=== PATIENT | female | born 1995 | race American Indian/Alaskan Native ===

== ENCOUNTER 2017-07-28 10:46 | Inpatient (IN) | payer MEDICAID ==
[2017-07-28] MEDS ORDERED: Ondansetron 4 MG/2 ML SDV IVPUSH PRN ×2 (11:09→11:51)
[2017-07-28] MEDS ORDERED: Nalbuphine 20 MG/1 ML Amp IVPUSH PRN (11:09)
[2017-07-28] MEDS ORDERED: Sodium Chloride 0.9% 10 ML Syringe FLUSH PRN (11:09)
[2017-07-28] MEDS ORDERED: Lidocaine 1% 50 ML MDV INJECT ONE (11:09)
[2017-07-28] MEDS: Lactated Ringers 1,000 ML IV SCH ×3 (11:30→18:55)
[2017-07-28] MEDS ORDERED: Oxytocin/Lactated Ringers 10 UNIT/1,000 ML BAG IV ONE (11:35)
[2017-07-28] MEDS ORDERED: Oxytocin/Lactated Ringers 10 UNIT/1,000 ML BAG IV SCH ×2 (11:45→17:00)
--- NOTE | 2017-07-28 11:50 | PCM.LDHP ---
L&D History of Present Illness - General Date of Service: 07/28/17 Admit Problem/Dx: Patient Status Order with Admit Dx/Problem 07/28/17 11:10 Patient Status [ADT] Routine Admission Diagnosis/Problem Admission Diagnosis/Problem 07/28/17 11:30 Active Labor Source of Information: Patient, EMS, EMS Notes Reviewed History Limitations: Reports: No Limitations - History of Present Illness Introduction:: Jamison Sultana is a 21yo at 40/2 who presents in active labor. She desires a after a C section on 09/15/14 for transverse presentation. She has had a successful on 01/16/16 without complication. She is GBS negative, has no h/o MRSA, or travel to Zika endemic areas. She has no known drug allergies. She has had her Influenza shot, Tdap shot, and is Varicella immune. She has had late care with no regular interval appointments. She has recently moved back to [facility] and is a transfer of care. US on 07/23/17 showed no abnormalities, FHR 158, and a posterior placenta. Gonorrhea was positive. She was given Cephtriaxone IM on 07/25/17. She was also started on Azithromycin 500mg x2 one time PO 07/24/17. She denies prior history of STI. She is negative for Chlamydia, non reactive RPR, HIV negative, and has a non-immune rubella titer. She is O+ blood type. Last labs show plt 394,000, hct 30.4%, and antibody screen negative. 1 hour glucose was within normal limits at 82mg/dl on 04/26/17. She denies any other complaints at this time, and she does desire an epidural. - Related Data Allergies/Adverse Reactions: Allergies Allergy/AdvReac Type Severity Reaction Status Date / Time No Known Allergies Allergy Verified 07/28/17 11:25 Past Medical History Other HEENT History: Seasonal Allergies Respiratory History: Reports: Asthma : 4 Para: 3 Other OB/BYN History: Prior 09/15/14 Musculoskeletal History: Reports: Back Pain, Chronic Hematologic History: Reports: Blood Transfusion(s) Social & Family History - Family History Other Family History: DM maternal grandmother and mother. HTN mother. Father Seizures. Denies family history of cancer, heart disease, bleeding disorders, anesthesia reaction, autoimmune disorder, and stroke. - Tobacco Use Tobacco Use Within Last Twelve Months: No - Alcohol Use Alcohol Use History: No Alcohol Use in Last Twelve Months: No Alcohol Use Comment: Father alcoholic. Significant other uses alcohol. - Recreational Drug Use Recreational Drug Use: No Drug Use in Last 12 Months: No - Sexual History Sexual History: Reports: Sexually Active H&P Review of Systems - Review of Systems: Review Of Systems: See Below General: Reports: No Symptoms HEENT: Reports: No Symptoms Pulmonary: Reports: No Symptoms Cardiovascular: Reports: No Symptoms Gastrointestinal: Reports: No Symptoms Genitourinary: Reports: No Symptoms Musculoskeletal: Reports: No Symptoms Skin: Reports: No Symptoms Psychiatric: Reports: No Symptoms Neurological: Reports: No Symptoms Hematologic/Lymphatic: Reports: No Symptoms Immunologic: Reports: No Symptoms L&D Exam - Exam Exam: See Below - Vital Signs Weight: 74.888 kg - OB Specific Fundal Height In cm: 40 Contraction Duration (sec): 45 Contraction Frequency (min): 2-3min Contraction Intensity: Moderate Movement: Active Heart Tones: Present - Dunlap Score Dunlap Score Consistency: Soft Dunlap Score Dilation: > 5 cm - Exam General: Alert, Oriented HEENT: PERRLA, Conjunctiva Clear, EACs Clear, EOMI, Hearing Intact, Mucosa Moist & Coleman, Nares Patent, Normal Nasal Septum, Posterior Pharynx Clear, TMs Clear Neck: Supple, Trachea Midline Lungs: Clear to Auscultation, Normal Respiratory Effort Cardiovascular: Regular Rate, Regular Rhythm GI/Abdominal Exam: Normal Bowel Sounds, Soft, Non-Tender Genitourinary: Normal external exam Back Exam: Normal Inspection, Full Range of Motion Extremities: Normal Inspection, Normal Range of Motion, Non-Tender, No Pedal Edema, Normal Capillary Refill Skin: Warm, Dry, Intact Neurological: Cranial Nerves Intact, Reflexes Equal Bilateral Psychiatric: Alert, Normal Affect, Normal Mood - Patient Data Result Diagrams: 07/28/17 11:28 - Problem List (1) Normal labor SNOMED Code(s): 92603836 ICD Code: O80 - ENCOUNTER FOR FULL-TERM UNCOMPLICATED DELIVERY; Z37.9 - OUTCOME OF DELIVERY, UNSPECIFIED Status: Acute Current Visit: Yes (2) Gonorrhea complicating SNOMED Code(s): 303406093 ICD Code: O98.219 - GONORRHEA COMPLICATING , UNSPECIFIED TRIMESTER Status: Acute Current Visit: Yes (3) Late care SNOMED Code(s): 387934428 ICD Code: O09.30 - SUPRVSN OF PREG W INSUFFICIENT ANTENAT CARE, UNSP TRIMESTER Status: Acute Current Visit: Yes (4) Hx successful (vaginal after ), currently SNOMED Code(s): 209576154, 362247745 ICD Code: O34.219 - MATERNAL CARE FOR UNSP TYPE SCAR FROM PREVIOUS DEL Status: Acute Current Visit: Yes (5) Desires (vaginal after ) trial SNOMED Code(s): 980815726 ICD Code: O34.219 - MATERNAL CARE FOR UNSP TYPE SCAR FROM PREVIOUS DEL Status: Acute Current Visit: Yes Problem List Initiated/Reviewed/Updated: Yes Orders Last 24hrs: Active Orders 24 hr Category Date Time Status Patient Status [ADT] Routine ADT 07/28/17 11:10 Active Activity as Tolerated [RC] PFP Care 07/28/17 11:10 Active Communication Order [RC] ASDIRECTED Care 07/28/17 11:09 Active Communication Order [RC] ASDIRECTED Care 07/28/17 11:10 Active Heart Tones [RC] ASDIRECTED Care 07/28/17 11:12 Active Notify Provider [RC] PFP Care 07/28/17 11:10 Active Notify Provider [RC] PRN Care 07/28/17 11:10 Active Peripheral IV Care [RC] . DIRECTED Care 07/28/17 11:12 Active Pump Management, Intrathecal [RC] ASDIRECTED Care 07/28/17 11:12 Active Verify Patient Consent Obtain [RC] ASDIRECTED Care 07/28/17 11:09 Active Vital Signs [RC] PER UNIT ROUTINE Care 07/28/17 11:10 Active Clear Liquid Diet [DIET] Diet 07/28/17 Lunch Active CBC WITH AUTO DIFF [HEME] Stat Lab 07/28/17 11:09 Ordered TYPE AND SCREEN [BBK] Stat Lab 07/28/17 11:09 Ordered Lactated Ringers [Ringers, Lactated] 1,000 ml Med 07/28/17 11:15 Active IV ASDIRECTED Nalbuphine [Nubain] Med 07/28/17 11:09 Active 10 mg IVPUSH Q2H PRN Ondansetron [Zofran] Med 07/28/17 11:09 Active 4 mg IVPUSH Q4H PRN Sodium Chloride 0.9% [Saline Flush] Med 07/28/17 11:09 Active 10 ml FLUSH ASDIRECTED PRN Electronic Heart Tones Ext w TOCO [WOMSER] Oth 07/28/17 11:10 Ordered Routine Electronic Heart Tones Internal [WOMSER] Per Unit Oth 07/28/17 11:10 Ordered Routine Peripheral IV Insertion Adult [OM.PC] Routine Oth 07/28/17 11:10 Ordered Resuscitation Status Routine Resus Stat 07/28/17 11:09 Ordered Medication Orders Lactated Ringer's (Ringers, Lactated) 1,000 mls @ 100 mls/hr IV ASDIRECTED LAURE Nalbuphine HCl (Nubain) 10 mg IVPUSH Q2H PRN PRN Reason: Pain (moderate 4-6) Ondansetron HCl (Zofran) 4 mg IVPUSH Q4H PRN PRN Reason: Nausea/Vomiting Sodium Chloride (Saline Flush) 10 ml FLUSH ASDIRECTED PRN PRN Reason: Keep Vein Open Assessment/Plan Comment:: 1. History of C section after successsful 2. 40/2 2 weeks gestation 3. GC positive treated with Rocephin 07/25/17 4. GBS negative 5. h/o blood transfusion 6. Rubella non-immune 7. Late care 8. Desires epidural Plan: TOLAC for - consent for and c section continuous monitoring- EFM Notify/alert anesthesia, surgery, and pediatric departments (GC hx) MMR post-
[2017-07-28] MEDS ORDERED: diphenhydrAMINE 50 MG/ML SDV IVPUSH PRN (11:51)
[2017-07-28] MEDS ORDERED: ePHEDrine 50 MG/ML SDV IVPUSH PRN (11:51)
[2017-07-28] MEDS ORDERED: fentaNYL 100 MCG/2 ML SDV EPIDUR PRN (11:51)
[2017-07-28] MEDS ORDERED: Bupivacaine/fentaNYL/NS 100 ML Bag EPIDUR SCH (12:00)
--- NOTE | 2017-07-28 14:58 | PCM.SN ---
- Free Text/Narrative Note: Jamison is a 21-year-old 4 now para 4004 recommending female is admitted on the a.m. of 07/28/2017 in active labor. JOHNNY was 07/26/2017. Upon admission she was noted to be dilated 6 cm, 90% effaced, bulging bag of carter. Patient had a recent history of GC positive evaluation in clinic, had received Rocephin IM and Zithromax per recommended protocol. Artificial rupture membranes was undertaken to facilitate labor pattern. Very light meconium- stained amniotic fluid was noted. Pediatrics was informed of the history and was in attendance at the time of delivery.. She progressed relatively rapidly to complete cervical dilation by approximately 1425 hrs. she then delivered a viable, single, female infant with Apgars of 8 and 9, a weight of 4040 g (8 pounds 14.5 ounces), a length of 20.5 inches in a left occiput anterior position at 1433 hrs. Perineum remained intact therefore no suturing was needed. Patient was noted to have significant vulvar varicosities bilaterally. The cord was clamped 2 and baby was handed to Dr. Dyson, attending rn lactation because of very light meconium stained amniotic fluid. Cord blood was obtained. Pitocin IV was started per protocol to facilitate increase in uterine tone and decrease likelihood of bleeding. Placenta delivered at 1439 hrs. and delivered in a Amos fashion, appeared intact and complete and was discarded per patient request. Estimated blood loss was 200 mL. Patient plans to breast-feed. Condition: Good
[2017-07-28] MEDS ORDERED: Lanolin 100% Cream 7 GM Tube TOP PRN (15:52)
[2017-07-28] MEDS ORDERED: Acetaminophen 325 MG Tab PO PRN (15:52)
[2017-07-28] MEDS ORDERED: Docusate Sodium 100 MG Cap PO PRN (15:52)
[2017-07-28] MEDS ORDERED: Measles, Mumps & Rubella Vaccine 0.5 ML SDV SUBCUT ONE (15:52)
[2017-07-28] MEDS ORDERED: Benzocaine/Menthol 20%-0.5% Spray 56 GM Canister TOP PRN (15:52)
[2017-07-28] MEDS ORDERED: Witch Hazel Medicated Pads 100/Jar TOP PRN (15:52)
[2017-07-28] MEDS ORDERED: Misoprostol 200 MCG Tab PO ONE (16:58)
[2017-07-28] MEDS ORDERED: Misoprostol 100 MCG Tab ONE (17:00)
[2017-07-28] MEDS: Ibuprofen 600 MG Tab PO PRN ×2 (17:20→21:01)
[2017-07-28] MEDS ORDERED: Benzonatate 100 MG Cap PO PRN (19:28)
[2017-07-28] MEDS ORDERED: Benzocaine/Cetylpyridinium/Menthol Lozenge MUCMEM PRN (19:32)
[2017-07-28] MEDS ORDERED: Bupivacaine 0.25% 10 ML SDV ONE (22:22)
[2017-07-29] MEDS: Ibuprofen 600 MG Tab PO PRN ×3 (02:14→20:00)
--- NOTE | 2017-07-29 08:32 | PCM48HPAN ---
Post Anesthesia Note - EVALUATION WITHIN 48HRS OF ANESTHETIC Vital Signs in Normal Range: Yes Patient Participated in Evaluation: Yes Respiratory Function Stable: Yes Airway Patent: Yes Cardiovascular Function Stable: Yes Hydration Status Stable: Yes Pain Control Satisfactory: Yes Nausea and Vomiting Control Satisfactory: Yes Mental Status Recovered: Yes - COMMENTS/OBSERVATIONS Free Text/Narrative:: Jamison has been up walking this morning. Denies weakness/numbness/tingling to her lower extremities. Denies headache. No further questions at this time. No complications noted.
--- NOTE | 2017-07-29 09:01 | PCM.SN ---
- Free Text/Narrative Note: Patient doing well today. Vital signs stable patient is afebrile. Abdomen is flat, soft, nontender with uterus at umbilicus. Lower extremities within normal limits. Flu is negative. Assessment/plan: day 1 doing well. Recommend routine care.
[2017-07-30] MEDS: Ibuprofen 600 MG Tab PO PRN ×2 (01:48→10:54)
--- NOTE | 2017-07-30 10:40 | PCM.DCSUM1 ---
Discharge Summary - Hospital Course Free Text/Narrative:: Jamison is a 21-year-old 4 now para 4004 recommending female is admitted on the a.m. of 07/28/2017 in active labor. JOHNNY was 07/26/2017. Upon admission she was noted to be dilated 6 cm, 90% effaced, bulging bag of carter. Patient had a recent history of GC positive evaluation in clinic, had received Rocephin IM and Zithromax per recommended protocol. Artificial rupture membranes was undertaken to facilitate labor pattern. Very light meconium- stained amniotic fluid was noted. Pediatrics was informed of the history and was in attendance at the time of delivery.. She progressed relatively rapidly to complete cervical dilation by approximately 1425 hrs. she then delivered a viable, single, female infant with Apgars of 8 and 9, a weight of 4040 g (8 pounds 14.5 ounces), a length of 20.5 inches in a left occiput anterior position at 1433 hrs. Perineum remained intact therefore no suturing was needed. Patient was noted to have significant vulvar varicosities bilaterally. The cord was clamped 2 and baby was handed to Dr. Dyson, attending primary school teacher librarian because of very light meconium stained amniotic fluid. Cord blood was obtained. Pitocin IV was started per protocol to facilitate increase in uterine tone and decrease likelihood of bleeding. Placenta delivered at 1439 hrs. and delivered in a Amos fashion, appeared intact and complete and was discarded per patient request. Estimated blood loss was 200 mL. Patient plans to breast-feed. the patient was done very well. She is nursing without problems. Baby is under bili lights and will be here at least until tomorrow. Patient however desires discharge hospital. - Discharge Data Discharge Date: 07/30/17 Discharge Disposition: DC/Tfer to Inpt Rehab Fac 62 Condition: Good - Patient Instructions Diet: Regular Diet as Tolerated (ursing diet with increased calories and calcium is recommended) Activity: As Tolerated (No intercourse or tampons until vaginal discharge results.) Driving: Do Not Drive (2 days after discharge) Showering/Bathing: May Shower (May take a bath) Notify Provider of: Fever, Increased Pain, Swelling and Redness, Nausea and/or Vomiting - Discharge Plan Home Medications: Home Meds Acetaminophen [Tylenol] 650 mg PO Q4H PRN tablet 07/30/17 [Rx] Ibuprofen [IJD: Ibuprofen] 600 mg PO Q4H PRN tablet 07/30/17 [Rx] Referrals: Flavia Walker MD [Physician] - (Return to clinic6 weeks.) - Discharge Summary/Plan Comment DC Time >30 min.: No Discharge Summary/Plan Comment: Discharge instructions: 1. Discharge home 2. Diet, activity and follow-up discussed with patient. Recommend nursing diet with increased calories and calcium. 3. Precautions given concern increased pain, bleeding, temperature, signs/ symptoms of DVT/PE. 4. Medications per home medication was printed, discussed with and given to the patient. 5. Return to clinic-Dr. Ibrahim at [facility] in 6 weeks. Diagnosis: Term -delivered Condition: Good - Patient Data Vitals - Most Recent: Last Vital Signs Temp 35.9 C 07/30/17 06:22 Pulse 76 07/30/17 06:22 Resp 18 07/30/17 06:22 BP 114/79 07/30/17 06:22 Pulse Ox 99 07/30/17 06:22 Weight - Most Recent: 74.888 kg I&O - Last 24 hours: Intake & Output 07/29/17 07/30/17 07/30/17 22:59 06:59 14:59 Intake Total 760 Balance 760 Lab Results - Last 24 hrs: Laboratory Results - last 24 hr 07/29/17 Range/Units 14:52 WBC 9.70 (3.98-10.04) K/mm3 RBC 3.09 L (3.98-5.22) M/mm3 Hgb 7.0 L* (11.2-15.7) gm/L Hct 22.6 L (34.1-44.9) % MCV 73.1 L (79.4-94.8) fl MCH 22.7 L (25.6-32.2) pg MCHC 31.0 L (32.2-35.5) g/dl RDW Std Deviation 42.9 (36.4-46.3) fL Plt Count 398 H (182-369) K/mm3 MPV 7.5 L (9.4-12.3) fl Med Orders - Current: Current Medications Acetaminophen (Tylenol) 650 mg PO Q4H PRN PRN Reason: mild pain or fever Benzocaine/Menthol (Dermoplast Pain Relief [place]) 0 gm TOP ASDIRECTED PRN PRN Reason: Perineal Comfort Measure Benzocaine/Menthol (Cepacol Sore Throat) 1 lozenge MUCMEM Q2HR PRN PRN Reason: Cough Last Admin: 07/28/17 20:09 Dose: 1 lozenge Benzonatate (Tessalon Perles) 100 mg PO Q8HR PRN PRN Reason: Cough Last Admin: 07/28/17 20:09 Dose: 100 mg Docusate Sodium (Colace) 100 mg PO BID PRN PRN Reason: Constipation Last Admin: 07/29/17 14:13 Dose: 100 mg Emollient Ointment (Lansinoh Hpa) 0 gm TOP ASDIRECTED PRN PRN Reason: Sore Nipples Last Admin: 07/28/17 21:01 Dose: 1 applic Oxytocin/Lactated Ringer's (Pitocin In Lr 10 Units/1,000 Ml) 10 unit in 1,000 mls @ 1,500 mls/hr IV ASDIRECTED LAURE PRN Reason: 250 MUNITS/MIN Last Admin: 07/28/17 18:24 Dose: 250 munits/min, 1,500 mls/hr Ibuprofen (Motrin) 600 mg PO Q4H PRN PRN Reason: Mild pain or fever Last Admin: 07/30/17 01:48 Dose: 600 mg Witch Bernie (Tucks) 1 pad TOP ASDIRECTED PRN PRN Reason: Hemorrhoid pain Discontinued Medications Bupivacaine HCl (Sensorcaine-Mpf 0.25%) 10 ml .ROUTE .[facility] ONE Stop: 07/28/17 22:23 Diphenhydramine HCl (Benadryl) 25 mg IVPUSH Q6H PRN PRN Reason: Pruritis Ephedrine Sulfate (Ephedrine Sulfate) 5 mg IVPUSH ASDIRECTED PRN PRN Reason: Hypotension Fentanyl (Sublimaze) 100 mcg EPIDUR Q3H PRN PRN Reason: Pain Last Admin: 07/28/17 12:18 Dose: 100 mcg Fentanyl/Bupivacaine HCl (Fentanyl/Bupivacaine/Ns 2 Mcg-0.125% 100 Ml) 100 ml EPIDUR ASDIRECTED LAURE Last Admin: 07/28/17 12:19 Dose: 100 ml Lactated Ringer's (Ringers, Lactated) 1,000 mls @ 100 mls/hr IV ASDIRECTED [facility] Last Admin: 07/28/17 18:55 Dose: 100 mls/hr Oxytocin/Lactated Ringer's (Pitocin In Lr 10 Units/1,000 Ml) Confirm Administered Dose 10 unit in 1,000 mls @ as directed IV .[facility] ONE Stop: 07/28/17 11:36 Last Admin: 07/28/17 18:52 Dose: Not Given Oxytocin/Lactated Ringer's (Pitocin In Lr 10 Units/1,000 Ml) 10 unit in 1,000 mls @ 500 mls/min IV ASDIRECTED LAURE PRN Reason: Protocol Last Admin: 07/28/17 14:33 Dose: 500 mls/min Lidocaine HCl (Xylocaine 1%) 10 ml INJECT ONETIME ONE Stop: 07/28/17 11:10 Measles/Mumps/Rubella Vaccine Live (M-M-R Ii Vaccine) 0.5 ml SUBCUT .ONCE ONE Stop: 07/28/17 15:53 Last Admin: 07/29/17 02:15 Dose: 0.5 ml Misoprostol (Cytotec) 600 mcg PO ASDIRECTED ONE Stop: 07/28/17 16:59 Last Admin: 07/28/17 17:20 Dose: 600 mcg Misoprostol (Cytotec) Confirm Administered Dose 100 mcg .ROUTE .[facility] ONE Stop: 07/28/17 17:01 Last Admin: 07/28/17 18:51 Dose: Not Given Nalbuphine HCl (Nubain) 10 mg IVPUSH Q2H PRN PRN Reason: Pain (moderate 4-6) Ondansetron HCl (Zofran) 4 mg IVPUSH Q4H PRN PRN Reason: Nausea/Vomiting Ondansetron HCl (Zofran) 4 mg IVPUSH ONETIME PRN PRN Reason: Nausea/Vomiting Sodium Chloride (Saline Flush) 10 ml FLUSH ASDIRECTED PRN PRN Reason: Keep Vein Open *Q Meaningful Use (DIS) - VTE *Q VTE Criteria *Q: - Stroke *Q Stroke Criteria *Q: - AMI *Q AMI Criteria *Q:
== END 2017-07-30 11:55 | disposition home or self-care (01) | DRG 774 ==
LOC: JD.OB 10:46 → JD.OBCHECK 10:46 → JD.OB 11:10 → OBSVTOIN 14:33 → JD.OB 14:33
PROVIDERS: ADMIT Obstetrics & Gynecology; ATTEND Obstetrics & Gynecology
PROC: 10E0XZZ Delivery of Products of Conception, External Approach (ICD-10-PCS; principal; 2017-07-28)
PROC: 10907ZC Drainage of Amniotic Fluid, Therapeutic from Products of Conception, Via Natural or Artificial Opening (ICD-10-PCS; 2017-07-28)
PROC: 00HU33Z Insertion of Infusion Device into Spinal Canal, Percutaneous Approach (ICD-10-PCS; 2017-07-28)
PROC: 3E0R3BZ Introduction of Anesthetic Agent into Spinal Canal, Percutaneous Approach (ICD-10-PCS; 2017-07-28)
DX: O34.211 Maternal care for low transverse scar from previous cesarean delivery (principal); O98.22 Gonorrhea complicating childbirth; Z37.0 Single live birth; N85.8 Other specified noninflammatory disorders of uterus; Z3A.40 40 weeks gestation of pregnancy
CPT/HCPCS: 36415; 51702; 59409; 85025; 85027; 86850; 86900; 86901; 87804; 90707; A9270-GY; J2590; J3010; J7120

== ENCOUNTER 2018-11-17 13:28 | Inpatient (IN) | payer SELFPAY ==
[2018-11-17] MEDS ORDERED: Sodium Chloride 0.9% 10 ML Syringe FLUSH PRN ×2 (13:57→14:57)
[2018-11-17] MEDS ORDERED: Nalbuphine 20 MG/ML 1 ML Syringe IVPUSH PRN (13:57)
[2018-11-17] MEDS ORDERED: Ondansetron 4 MG/2 ML SDV IVPUSH PRN (13:57)
[2018-11-17] MEDS ORDERED: Oxytocin/Lactated Ringers 10 UNIT/1,000 ML BAG IV SCH ×3 (14:00→21:00)
[2018-11-17] MEDS ORDERED: diphenhydrAMINE 50 MG/ML SDV IVPUSH PRN ×2 (14:22→14:58)
[2018-11-17] MEDS ORDERED: ePHEDrine 50 MG/ML SDV IVPUSH PRN ×2 (14:22→14:58)
[2018-11-17] MEDS ORDERED: fentaNYL 100 MCG/2 ML SDV EPIDUR PRN ×3 (14:22→14:59)
[2018-11-17] MEDS ORDERED: fentaNYL 100 MCG/2 ML SDV ONE (14:29)
[2018-11-17] MEDS ORDERED: Lidocaine 1%/Sod Bicarbonate in NS 8.4% 1 ML Syringe IDERM PRN (14:57)
[2018-11-17] MEDS ORDERED: Lactated Ringers 1,000 ML IV SCH (15:00)
--- NOTE | 2018-11-17 15:02 | PCM.PREANE ---
Preanesthetic Assessment - Anesthesia/Transfusion/Family Hx Anesthesia History: Prior Anesthesia Without Reaction Transfusion History: No Prior Transfusion(s) Intubation History: Unknown - Review of Systems General: No Symptoms Pulmonary: No Symptoms Cardiovascular: No Symptoms Gastrointestinal: No Symptoms Neurological: No Symptoms Other: Reports: None - Physical Assessment Height: 1.57 m Weight: 73.028 kg ASA Class: 2E Mental Status: Alert & Oriented x3 Airway Class: Mallampati = 2 Dentition: Reports: Normal Dentition ROM/Head Extension: Full Lungs: Clear to Auscultation, Normal Respiratory Effort Cardiovascular: Regular Rate, Regular Rhythm - Lab Values: Laboratory Last Values WBC 10.15 K/mm3 (3.98-10.04) H 11/17/18 14:00 RBC 4.30 M/mm3 (3.98-5.22) 11/17/18 14:00 Hgb 8.4 gm/L (11.2-15.7) L 11/17/18 14:00 Hct 29.1 % (34.1-44.9) L 11/17/18 14:00 MCV 67.7 fl (79.4-94.8) L D 11/17/18 14:00 MCH 19.5 pg (25.6-32.2) L 11/17/18 14:00 MCHC 28.9 g/dl (32.2-35.5) L 11/17/18 14:00 RDW Std Deviation 42.7 fL (36.4-46.3) 11/17/18 14:00 Plt Count 362 K/mm3 (182-369) 11/17/18 14:00 MPV 7.4 fl (9.4-12.3) L 11/17/18 14:00 Neut % (Auto) 82.7 % (34.0-71.1) H 11/17/18 14:00 Lymph % (Auto) 11.9 % (19.3-51.7) L 11/17/18 14:00 [place] % (Auto) 4.6 % (4.7-12.5) L 11/17/18 14:00 Eos % (Auto) 0.3 (0.7-5.8) L 11/17/18 14:00 Baso % (Auto) 0.2 % (0.1-1.2) 11/17/18 14:00 Neut # (Auto) 8.39 K/mm3 (1.56-6.13) H 11/17/18 14:00 Lymph # (Auto) 1.21 K/mm3 (1.18-3.74) 11/17/18 14:00 [place] # (Auto) 0.47 K/mm3 (0.24-0.36) H 11/17/18 14:00 Eos # (Auto) 0.03 K/mm3 (0.04-0.36) L 11/17/18 14:00 Baso # (Auto) 0.02 K/mm3 (0.01-0.08) 11/17/18 14:00 Manual Slide Review Abnormal smear 11/17/18 14:00 Blood Type O POSITIVE 11/17/18 14:00 Gel Antibody Screen Negative 11/17/18 14:00 - Allergies Allergies/Adverse Reactions: Allergies Allergy/AdvReac Type Severity Reaction Status Date / Time No Known Allergies Allergy Verified 07/28/17 11:25 - Blood Blood Available: No Product(s) Available: None - Anesthesia Plan Pre-Op Medication Ordered: None - Acknowledgements Anesthesia Type Planned: Epidural Pt an Appropriate Candidate for the Planned Anesthesia: Yes Alternatives and Risks of Anesthesia Discussed w Pt/Guardian: Yes Pt/Guardian Understands and Agrees with Anesthesia Plan: Yes Additional Comments: Hgb - low Hct- low PreAnesthesia Questionnaire Other HEENT History: Seasonal Allergies Respiratory History: Reports: Asthma Other OB/BYN History: Prior 09/15/14 Musculoskeletal History: Reports: Back Pain, Chronic Hematologic History: Reports: Blood Transfusion(s) - HOME MEDS Home Medications: Home Meds Acetaminophen [Tylenol] 650 mg PO Q4H PRN tablet 07/30/17 [Rx] Ibuprofen [IJD: Ibuprofen] 600 mg PO Q4H PRN tablet 07/30/17 [Rx] - CURRENT (IN HOUSE) MEDS Current Meds: Current Medications Diphenhydramine HCl (Benadryl) 25 mg IVPUSH Q6H PRN PRN Reason: Pruritis Diphenhydramine HCl (Benadryl) 25 mg IVPUSH Q6H PRN PRN Reason: Pruritis Ephedrine Sulfate (Ephedrine Sulfate) 5 mg IVPUSH ONETIME PRN PRN Reason: Hypotension Ephedrine Sulfate (Ephedrine Sulfate) 5 mg IVPUSH ONETIME PRN PRN Reason: Hypotension Fentanyl (Sublimaze) 100 mcg EPIDUR Q3H PRN PRN Reason: Pain Fentanyl (Sublimaze) 100 mcg EPIDUR Q3H PRN PRN Reason: Pain Lactated Ringer's (Ringers, Lactated) 1,000 mls @ 100 mls/hr IV ASDIRECTED LAURE Oxytocin/Lactated Ringer's (Pitocin In Lr 10 Units/1,000 Ml) 10 unit in 1,000 mls @ 500 mls/hr IV .CONTINUOUS LAURE Lactated Ringer's (Ringers, Lactated) 1,000 mls @ 125 mls/hr IV ASDIRECTED LAURE Lidocaine/Sodium Bicarbonate (Buffered Lidocaine 1% In Ns 8.4%) 0.25 ml IDERM ONETIME PRN PRN Reason: Prior to IV Start Nalbuphine HCl (Nubain) 10 mg IVPUSH Q2H PRN PRN Reason: pain Ondansetron HCl (Zofran) 4 mg IVPUSH Q4H PRN PRN Reason: Nausea/Vomiting Sodium Chloride (Saline Flush) 10 ml FLUSH ASDIRECTED PRN PRN Reason: Keep Vein Open Sodium Chloride (Saline Flush) 10 ml FLUSH ASDIRECTED PRN PRN Reason: Keep Vein Open Discontinued Medications Fentanyl (Sublimaze) 100 mcg EPIDUR Q3H PRN PRN Reason: Pain Fentanyl (Sublimaze) Confirm Administered Dose 100 mcg .ROUTE .[facility] ONE Stop: 11/17/18 14:30
--- NOTE | 2018-11-17 15:03 | PCM.POSTAN ---
POST ANESTHESIA ASSESSMENT - MENTAL STATUS Mental Status: Alert - RESPIRATORY Respiratory Status: Respiratory Rate WNL, Airway Patent, O2 Saturation Stable - CARDIOVASCULAR CV Status: Pulse Rate WNL, Blood Pressure Stable - GASTROINTESTINAL GI Status: No Symptoms - POST OP HYDRATION Hydration Status: Adequate & Stable
[2018-11-17] MEDS: Lactated Ringers 1,000 ML IV SCH ×2 (15:05→18:22)
[2018-11-17] MEDS ORDERED: Bupivacaine/fentaNYL/NS 100 ML Bag EPIDUR SCH (15:15)
--- NOTE | 2018-11-17 15:54 | PCM.LDHP ---
L&D History of Present Illness - General Date of Service: 11/17/18 Admit Problem/Dx: Patient Status Order with Admit Dx/Problem 11/17/18 13:57 Patient Status [ADT] Routine Admission Diagnosis/Problem Admission Diagnosis/Problem Source of Information: Patient History Limitations: Reports: No Limitations - History of Present Illness Introduction:: Jamison Almodovar is a 22 year old female at 38 weeks 4 days (JOHNNY 2018) by 13 week ultrasound per her report who presents with contractions. She reports that she started having contractions at about 6 AM this morning and they became closer and closer together and were quite painful. She denies any leaking of fluid or vaginal bleeding. She reports good movement. She has had very limited care with only several visits with the clinic in [place] and had the ultrasound done in [place]. She reports that she has not had routine care because she lost her ID in the clinic would not see her without it. Timing/Duration: Reports: hour(s): (10), sudden onset, getting worse Location, : Reports: Abdomen, Lower back, Pelvic Severity: Severe Improves with: Reports: None Worsens with: Reports: None Associated Symptoms: Denies: vaginal bleeding, vaginal discharge, vaginal fluid Present Illness Comments:: Jamison Almodovar is a 22-year-old at 38 weeks 4 days (EDC 11/27/2018) by 13 week ultrasound per her report with active labor. On initial evaluation her cervix was 4 cm dilated. She has had very limited care and per her report has only had several visits at the clinic in [place] and had an ultrasound done at 13 weeks in [place]. She reports that she had her labs done but did not get her oral glucose tolerance test or GBS swab done. She denies any history of her children affected by GBS disease and she has not had rupture of membranes prior to this admission. Her care is complicated by: * History of section - patient with section in her second due to transverse lie of the infant. She has had 2 successful deliveries since that section. * Limited care - patient with only several visits at the clinic in [place]. * Anemia in - patient with hemoglobin of 8.4 on admission today * History of hemorrhage - patient reports that she had excessive bleeding with her first and required a blood transfusion after delivery. 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 11 oz. infant, no complications G4: Successful of a 9 lbs. 1 oz. 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 CLERK History: Reports: Other OB/BYN History: Prior 09/15/14, history of hemorrhage in first Musculoskeletal History: Reports: Back Pain, Chronic Hematologic History: Reports: Blood Transfusion(s) - Past Surgical History HEENT Surgical History: Reports: None Female Surgical History: Reports: Section (09/15/2014 for transverse lie of ) Social & Family History - Family History Family Medical History: Noncontributory - Tobacco Use Smoking Status *Q: Former Smoker Used Tobacco, but Quit: Yes Month/Year Tobacco Last Used: 2017 Second Hand Smoke Exposure: No - Tobacco Core Measures Tobacco Use/Smoking Within Last 30 Days: No Smokeless Tobacco Use in Last 30 Days: No - Caffeine Use Caffeine Use: Reports: Soda - Recreational Drug Use Recreational Drug Use: No - Sexual History Sexual History: Reports: Sexually Active H&P Review of Systems - Review of Systems: Review Of Systems: See Below General: Denies: Fever, Chills, Malaise, Weakness, Fatigue HEENT: Reports: Headaches. Denies: Post Nasal Drip, Sinus Congestion, Sore Throat, Visual Changes Pulmonary: Reports: Cough (Recent viral upper respiratory infection). Denies: Shortness of Breath, Wheezing, Pleuritic Chest Pain Cardiovascular: Denies: Chest Pain, Palpitations, Dyspnea on Exertion, Orthopnea Gastrointestinal: Reports: Constipation. Denies: Abdominal Pain, Diarrhea, Nausea, Vomiting Genitourinary: Denies: Dysuria, Frequency, Burning, Pain, Urgency Musculoskeletal: Reports: Back Pain (And hip pain, reports history of chronic back pain from epidurals) Skin: Denies: Rash, Lesions Psychiatric: Denies: Depression, Anxiety Hematologic/Lymphatic: Reports: Anemia L&D Exam - Exam Exam: See Below - Vital Signs Vital Signs: Last Vital Signs Temp 36.7 C 11/17/18 13:57 Pulse 110 H 11/17/18 13:57 Resp 14 11/17/18 13:57 BP 123/76 11/17/18 13:57 Pulse Ox 100 11/17/18 13:57 Weight: 73.482 kg - OB Specific Contraction Duration (sec): 45-60 Contraction Frequency (min): 2-3 Contraction Intensity: Moderate to Strong Movement: Active Heart Tones: Present Heart Tones per Min: 150 (no accelerations, intermittent early decelerations) Heart Rate (FHR) Variability: Moderate (6-25 bmp) Presentation: Vertex Estimated Weight: 8-8.5 lbs by Le[place] - Dunlap Score Dunlap Score Cervix Position: Anterior Dunlap Score Consistency: Soft Dunlap Score Effacement: >80% (80) Dunlap Score Dilation: > 5 cm (5) Dunlap Score 's Station: -1 ,0 (0) Dunlap Score Total: 12 - Exam General: Alert, Oriented HEENT: Conjunctiva Clear, EOMI Neck: Supple, Trachea Midline Lungs: Clear to Auscultation, Normal Respiratory Effort Cardiovascular: Regular Rate, Regular Rhythm GI/Abdominal Exam: Soft, Non-Tender, No Distention, Other (gravid). No: Guarding, Rigid, Rebound Genitourinary: Normal external exam Back Exam: Normal Inspection, Full Range of Motion Extremities: Normal Inspection, Pedal Edema (1+) Skin: Warm, Dry, Intact Psychiatric: Alert, Normal Affect, Normal Mood - Patient Data Lab Results Last 24 hrs: Laboratory Results - last 24 hr 11/17/18 11/17/18 Range/Units 14:00 14:00 WBC 10.15 H (3.98-10.04) K/mm3 RBC 4.30 (3.98-5.22) M/mm3 Hgb 8.4 L (11.2-15.7) gm/L Hct 29.1 L (34.1-44.9) % MCV 67.7 L D (79.4-94.8) fl MCH 19.5 L (25.6-32.2) pg MCHC 28.9 L (32.2-35.5) g/dl RDW Std Deviation 42.7 (36.4-46.3) fL Plt Count 362 (182-369) K/mm3 MPV 7.4 L (9.4-12.3) fl Neut % (Auto) 82.7 H (34.0-71.1) % Lymph % (Auto) 11.9 L (19.3-51.7) % [place] % (Auto) 4.6 L (4.7-12.5) % Eos % (Auto) 0.3 L (0.7-5.8) Baso % (Auto) 0.2 (0.1-1.2) % Neut # (Auto) 8.39 H (1.56-6.13) K/mm3 Lymph # (Auto) 1.21 (1.18-3.74) K/mm3 [place] # (Auto) 0.47 H (0.24-0.36) K/mm3 Eos # (Auto) 0.03 L (0.04-0.36) K/mm3 Baso # (Auto) 0.02 (0.01-0.08) K/mm3 Manual Slide Review Abnormal smear Blood Type O POSITIVE Gel Antibody Screen Negative Result Diagrams: 11/17/18 14:00 - Problem List (1) 38 weeks gestation of SNOMED Code(s): 06428255 ICD Code: Z3A.38 - 38 WEEKS GESTATION OF Status: Acute Current Visit: Yes (2) Limited care in third trimester SNOMED Code(s): 801961814, 796369481 ICD Code: O09.33 - SUPRVSN OF PREG W INSUFFICIENT ANTENAT CARE, THIRD TRIMESTER Status: Acute Current Visit: Yes (3) Hx successful (vaginal after ), currently SNOMED Code(s): 299473585, 105722703, 397567344 ICD Code: O34.219 - MATERNAL CARE FOR UNSP TYPE SCAR FROM PREVIOUS DEL Status: Acute Current Visit: No (4) Anemia affecting in third trimester SNOMED Code(s): 60013111, 93211308 ICD Code: O99.013 - ANEMIA COMPLICATING , THIRD TRIMESTER Status: Acute Current Visit: Yes Problem List Initiated/Reviewed/Updated: Yes Orders Last 24hrs: Active Orders 24 hr Category Date Time Status Patient Status [ADT] Routine ADT 11/17/18 13:57 Active Activity as Tolerated [RC] PFP Care 11/17/18 13:57 Active Communication Order [RC] ASDIRECTED Care 11/17/18 13:57 Active Notify Provider [RC] ASDIRECTED Care 11/17/18 14:23 Active Notify Provider [RC] ASDIRECTED Care 11/17/18 14:58 Active Notify Provider [RC] PFP Care 11/17/18 13:57 Active Notify Provider [RC] PRN Care 11/17/18 13:57 Active Peripheral IV Care [RC] . DIRECTED Care 11/17/18 13:57 Active Urinary Catheter Assessment [RC] ASDIRECTED Care 11/17/18 13:57 Active Verify Patient Consent Obtain [RC] ASDIRECTED Care 11/17/18 14:57 Active Vital Signs [RC] PER UNIT ROUTINE Care 11/17/18 13:57 Active Regular Diet [DIET] Diet 11/17/18 Lunch Active RAPID PLASMA REAGIN,RPR [CHEM] Routine Lab 11/17/18 14:00 Received Bupivacaine/fentaNYL/NS [fentaNYL/Bupivacaine/NS 2 MCG- Med 11/17/18 15:15 Active 0.125% 100 ML] 100 ml EPIDUR ASDIRECTED Lactated Ringers [Ringers, Lactated] 1,000 ml Med 11/17/18 14:00 Active IV ASDIRECTED Lactated Ringers [Ringers, Lactated] 1,000 ml Med 11/17/18 15:00 Active IV ASDIRECTED Lidocaine 1%/Sod Bicarbonate [Buffered Lidocaine 1% in Med 11/17/18 14:57 Active NS 8.4%] 0.25 ml IDERM ONETIME PRN Nalbuphine [Nubain] Med 11/17/18 13:57 Active 10 mg IVPUSH Q2H PRN Ondansetron [Zofran] Med 11/17/18 13:57 Active 4 mg IVPUSH Q4H PRN Oxytocin/Lactated Ringers [Pitocin in LR 10 Units/1,000 Med 11/17/18 14:00 Active ML] 10 unit in 1,000 ml IV .CONTINUOUS Sodium Chloride 0.9% [Saline Flush] Med 11/17/18 13:57 Active 10 ml FLUSH ASDIRECTED PRN Sodium Chloride 0.9% [Saline Flush] Med 11/17/18 14:57 Active 10 ml FLUSH ASDIRECTED PRN diphenhydrAMINE [Benadryl] Med 11/17/18 14:22 Active 25 mg IVPUSH Q6H PRN diphenhydrAMINE [Benadryl] Med 11/17/18 14:58 Active 25 mg IVPUSH Q6H PRN ePHEDrine [ePHEDrine sulfate] Med 11/17/18 14:22 Active 5 mg IVPUSH ONETIME PRN ePHEDrine [ePHEDrine sulfate] Med 11/17/18 14:58 Active 5 mg IVPUSH ONETIME PRN fentaNYL [Sublimaze] Med 11/17/18 14:58 Active 100 mcg EPIDUR Q3H PRN fentaNYL [Sublimaze] Med 11/17/18 14:59 Active 100 mcg EPIDUR Q3H PRN Electronic Heart Tones Ext w TOCO [WOMSER] Ot 11/17/18 13:57 Ordered Routine Electronic Heart Tones Internal [WOMSER] Per Unit Ot 11/17/18 13:57 Ordered Routine Medication Administration Instruction [OM.PC] Routine Ot 11/17/18 14:57 Ordered Peripheral IV Insertion Adult [OM.PC] Routine Ot 11/17/18 13:57 Ordered Peripheral IV Insertion Adult [OM.PC] Routine Ot 11/17/18 14:57 Ordered Resuscitation Status Routine Resus Stat 11/17/18 13:57 Ordered Medication Orders Diphenhydramine HCl (Benadryl) 25 mg IVPUSH Q6H PRN PRN Reason: Pruritis Diphenhydramine HCl (Benadryl) 25 mg IVPUSH Q6H PRN PRN Reason: Pruritis Ephedrine Sulfate (Ephedrine Sulfate) 5 mg IVPUSH ONETIME PRN PRN Reason: Hypotension Ephedrine Sulfate (Ephedrine Sulfate) 5 mg IVPUSH ONETIME PRN PRN Reason: Hypotension Fentanyl (Sublimaze) 100 mcg EPIDUR Q3H PRN PRN Reason: Pain Fentanyl (Sublimaze) 100 mcg EPIDUR Q3H PRN PRN Reason: Pain Fentanyl/Bupivacaine HCl (Fentanyl/Bupivacaine/Ns 2 Mcg-0.125% 100 Ml) 100 ml EPIDUR ASDIRECTED LAURE Lactated Ringer's (Ringers, Lactated) 1,000 mls @ 100 mls/hr IV ASDIRECTED LAURE Last Admin: 11/17/18 15:05 Dose: 100 mls/hr Oxytocin/Lactated Ringer's (Pitocin In Lr 10 Units/1,000 Ml) 10 unit in 1,000 mls @ 500 mls/hr IV .CONTINUOUS LAURE Lactated Ringer's (Ringers, Lactated) 1,000 mls @ 125 mls/hr IV ASDIRECTED [facility] Last Admin: 11/17/18 15:05 Dose: 125 mls/hr Lidocaine/Sodium Bicarbonate (Buffered Lidocaine 1% In Ns 8.4%) 0.25 ml IDERM ONETIME PRN PRN Reason: Prior to IV Start Nalbuphine HCl (Nubain) 10 mg IVPUSH Q2H PRN PRN Reason: pain Ondansetron HCl (Zofran) 4 mg IVPUSH Q4H PRN PRN Reason: Nausea/Vomiting Sodium Chloride (Saline Flush) 10 ml FLUSH ASDIRECTED PRN PRN Reason: Keep Vein Open Sodium Chloride (Saline Flush) 10 ml FLUSH ASDIRECTED PRN PRN Reason: Keep Vein Open Assessment/Plan Comment:: Refer to observation for spontaneous labor with cervical dilation of 4 cm that changed to 5 cm over the course of 1.5 hours Artificial rupture membranes performed with return of clear fluid on cervical exam. Cervix was 5/80/0/soft/anterior. Mother and infant tolerated procedure without difficulty. Continuous monitoring Continue IV and have Lactated Ringer's at 125 ml/hr May have small amounts of regular diet Activity as tolerated Epidural in place Plans to breast-feed after delivery We will continue to monitor if patient becomes a candidate for GBS prophylaxis. She is at term without history of rupture membranes in this and no history of significant GBS disease in prior . Patient does not meet qualifications for antibiotic prophylaxis at this time however if she meets any of the criteria during labor we will start her on antibiotics. GBS swab collected. Type and screen for history of section with trial of labor after section Anticipate vaginal delivery unless otherwise indicated Jeff Yip M.D. 4:03 PM 11/17/2018
[2018-11-17] MEDS ORDERED: Acetaminophen 325 MG Tab PO PRN (17:38)
[2018-11-17] MEDS ORDERED: Lidocaine 1% 50 ML MDV ONE (20:00)
--- NOTE | 2018-11-17 20:43 | PCM.DEL ---
L & D Note - General Info Date of Service: 11/17/18 Mother's Due Date: 11/27/18 - Delivery Note Labor: Spontaneous, Augmented by ARM Delivery Outcome: Livebirth Delivery Method: Spontaneous Vaginal Delivery-Single Presentation: Left Occiput Anterior (JACQUE) Nuchal Cord: Present (x 1), Reduced Prep: Povidone-Iodine (Betadine Anesthesia Type: Epidural, Local Anesthetic: Lidocaine (Xylocaine) 1% Plain Local Anesthetic Volume: Other (8 cc) Amniotic Fluid Description: Clear Episiotomy Type: None Laceration: 1st Degree, Vaginal (left, repaired with 4-0 Vicryl and two figure of 8 sutures of 4-0 Vicryl) Suture type: Vicryl Suture size: 4-0 Placenta: Intact, Spontaneous Cord: 3 Vessels Estimated Blood Loss: 400 Resuscitation Needed: Yes : Suctioned, Bulb Syringe, Stimulated, Warmed, Webb Used, Warmer Used Provider: Jeff Yip Score 1 min: 7 Score 5 min: 9 Second Stage Interventions: Reports: Pushing Effectively, Pushing, Pulls Own Legs Back Delivery Comments (Free Text/Narrative):: Stage I: Jamison Almodovar was admitted for spontaneous labor. On admission her cervix was dilated to 4 cm. She was GBS unknown but did not have any risk factors indicating need for antibiotic prophylaxis. GBS swab was collected. She was given an epidural for anesthesia. She had artificial rupture membranes with clear fluid. She progressed complete and pushing. Stage II: On 11/17/2018 she had a normal vaginal delivery of a live male at 1947. Apgars of 7 & 9. Weight of 3400 g (7 lbs 7.9 oz). Length of 21 inches. There was a single nuchal cord that was reduced prior to delivery. was delivered in JACQUE position. The cord was doubly clamped and cut by myself. was placed on mother's abdomen. Stage III: She had a spontaneous delivery of an intact placenta in Amos presentation. Three vessel cord. She was given pitocin and fundal massage. She had a first-degree left vaginal laceration that was repaired with 4-0 Vicryl and 2 [id number] sutures with 4-0 Vicryl. She had continued bleeding with uterine atony and was given Methergine 200 mcg IM 1 dose. She had drainage of the bladder using straight catheter after cleansing the urethra with Betadine 3. She had approximately 100 mL of urine drained with the catheterization. Mom and baby were stable to recovery. EBL of 400 mL. Jeff Yip MD 8:43 PM 11/17/2018 - General Info Date of Service: 11/17/18 - Patient Data Vitals - Most Recent: Last Vital Signs Temp 36.7 C 11/17/18 13:57 Pulse 107 H 11/17/18 19:00 Resp 14 11/17/18 13:57 BP 124/81 11/17/18 19:00 Pulse Ox 100 11/17/18 13:57 Weight - Most Recent: 73.482 kg Lab Results Last 24 Hours: Laboratory Results - last 24 hr 11/17/18 11/17/18 11/17/18 Range/Units 14:00 14:00 14:00 WBC 10.15 H (3.98-10.04) K/mm3 RBC 4.30 (3.98-5.22) M/mm3 Hgb 8.4 L (11.2-15.7) gm/L Hct 29.1 L (34.1-44.9) % MCV 67.7 L D (79.4-94.8) fl MCH 19.5 L (25.6-32.2) pg MCHC 28.9 L (32.2-35.5) g/dl RDW Std Deviation 42.7 (36.4-46.3) fL Plt Count 362 (182-369) K/mm3 MPV 7.4 L (9.4-12.3) fl Neut % (Auto) 82.7 H (34.0-71.1) % Lymph % (Auto) 11.9 L (19.3-51.7) % [place] % (Auto) 4.6 L (4.7-12.5) % Eos % (Auto) 0.3 L (0.7-5.8) Baso % (Auto) 0.2 (0.1-1.2) % Neut # (Auto) 8.39 H (1.56-6.13) K/mm3 Lymph # (Auto) 1.21 (1.18-3.74) K/mm3 [place] # (Auto) 0.47 H (0.24-0.36) K/mm3 Eos # (Auto) 0.03 L (0.04-0.36) K/mm3 Baso # (Auto) 0.02 (0.01-0.08) K/mm3 Manual Slide Review Abnormal smear Urine Opiates Screen (QTTTLZ=354) Ur Buprenorphine Scrn (CUTOFF=10) Ur Oxycodone Screen (WWF1KJ=204) Urine Methadone Screen (VLLRQG=969) Ur Propoxyphene Screen (GSEEFO=762) Ur Barbiturates Screen (SNHPXQ=747) Ur Tricyclics Screen (UWESCX=246) Ur Phencyclidine Scrn (CUTOFF=25) Ur Amphetamine Screen (MOWWGW=402) U Methamphetamines Scrn (XBXAGK=379) U Benzodiazepines Scrn (ANHXRE=064) U Cocaine Metab Screen (THXPWD=103) U Marijuana (THC) Screen (CUTOFF=50) RPR Non-reactive (NONREACTIVE) Blood Type O POSITIVE Gel Antibody Screen Negative 11/17/18 Range/Units 14:32 WBC (3.98-10.04) K/mm3 RBC (3.98-5.22) M/mm3 Hgb (11.2-15.7) gm/L Hct (34.1-44.9) % MCV (79.4-94.8) fl MCH (25.6-32.2) pg MCHC (32.2-35.5) g/dl RDW Std Deviation (36.4-46.3) fL Plt Count (182-369) K/mm3 MPV (9.4-12.3) fl Neut % (Auto) (34.0-71.1) % Lymph % (Auto) (19.3-51.7) % [place] % (Auto) (4.7-12.5) % Eos % (Auto) (0.7-5.8) Baso % (Auto) (0.1-1.2) % Neut # (Auto) (1.56-6.13) K/mm3 Lymph # (Auto) (1.18-3.74) K/mm3 [place] # (Auto) (0.24-0.36) K/mm3 Eos # (Auto) (0.04-0.36) K/mm3 Baso # (Auto) (0.01-0.08) K/mm3 Manual Slide Review Urine Opiates Screen Negative (CHYPSR=819) Ur Buprenorphine Scrn Negative (CUTOFF=10) Ur Oxycodone Screen Negative (BYX6AL=600) Urine Methadone Screen Negative (HIKUIU=788) Ur Propoxyphene Screen Negative (ASTYQQ=971) Ur Barbiturates Screen Negative (JKLGTQ=631) Ur Tricyclics Screen Negative (LUKCVP=551) Ur Phencyclidine Scrn Negative (CUTOFF=25) Ur Amphetamine Screen Negative (EGJYBB=088) U Methamphetamines Scrn Negative (BNCRIU=444) U Benzodiazepines Scrn Negative (JMRXOW=791) U Cocaine Metab Screen Negative (GJWMPK=214) U Marijuana (THC) Screen Negative (CUTOFF=50) RPR (NONREACTIVE) Blood Type Gel Antibody Screen Med Orders - Current: Current Medications Acetaminophen (Tylenol) 650 mg PO Q4H PRN PRN Reason: headache, pain Last Admin: 11/17/18 17:55 Dose: 650 mg Diphenhydramine HCl (Benadryl) 25 mg IVPUSH Q6H PRN PRN Reason: Pruritis Diphenhydramine HCl (Benadryl) 25 mg IVPUSH Q6H PRN PRN Reason: Pruritis Ephedrine Sulfate (Ephedrine Sulfate) 5 mg IVPUSH ONETIME PRN PRN Reason: Hypotension Ephedrine Sulfate (Ephedrine Sulfate) 5 mg IVPUSH ONETIME PRN PRN Reason: Hypotension Fentanyl (Sublimaze) 100 mcg EPIDUR Q3H PRN PRN Reason: Pain Fentanyl (Sublimaze) 100 mcg EPIDUR Q3H PRN PRN Reason: Pain Fentanyl/Bupivacaine HCl (Fentanyl/Bupivacaine/Ns 2 Mcg-0.125% 100 Ml) 100 ml EPIDUR ASDIRECTED LAURE Lactated Ringer's (Ringers, Lactated) 1,000 mls @ 100 mls/hr IV ASDIRECTED LAURE Last Admin: 11/17/18 18:22 Dose: 100 mls/hr Oxytocin/Lactated Ringer's (Pitocin In Lr 10 Units/1,000 Ml) 10 unit in 1,000 mls @ 500 mls/hr IV .CONTINUOUS ALURE Lactated Ringer's (Ringers, Lactated) 1,000 mls @ 125 mls/hr IV ASDIRECTED LAURE Last Admin: 11/17/18 15:05 Dose: 125 mls/hr Oxytocin/Lactated Ringer's (Pitocin In Lr 10 Units/1,000 Ml) 10 unit in 1,000 mls @ 12 mls/hr IV TITRATE LAURE; Protocol Last Admin: 11/17/18 18:26 Dose: 2 munits/min, 12 mls/hr Lidocaine/Sodium Bicarbonate (Buffered Lidocaine 1% In Ns 8.4%) 0.25 ml IDERM ONETIME PRN PRN Reason: Prior to IV Start Nalbuphine HCl (Nubain) 10 mg IVPUSH Q2H PRN PRN Reason: pain Ondansetron HCl (Zofran) 4 mg IVPUSH Q4H PRN PRN Reason: Nausea/Vomiting Sodium Chloride (Saline Flush) 10 ml FLUSH ASDIRECTED PRN PRN Reason: Keep Vein Open Sodium Chloride (Saline Flush) 10 ml FLUSH ASDIRECTED PRN PRN Reason: Keep Vein Open Discontinued Medications Fentanyl (Sublimaze) 100 mcg EPIDUR Q3H PRN PRN Reason: Pain Fentanyl (Sublimaze) Confirm Administered Dose 100 mcg .ROUTE .STK-MED ONE Stop: 11/17/18 14:30 Last Admin: 11/17/18 17:33 Dose: Not Given Lidocaine HCl (Xylocaine 1%) Confirm Administered Dose 50 ml .ROUTE .STK-MED ONE Stop: 11/17/18 20:01 - Problem List & Annotations (1) 38 weeks gestation of SNOMED Code(s): 36862106 Code(s): Z3A.38 - 38 WEEKS GESTATION OF Status: Acute Current Visit: Yes (2) Limited care in third trimester SNOMED Code(s): 574070989, 522186226 Code(s): O09.33 - SUPRVSN OF PREG W INSUFFICIENT ANTENAT CARE, THIRD TRIMESTER Status: Acute Current Visit: Yes (3) Hx successful (vaginal after ), currently SNOMED Code(s): 565347436, 056611478, 851531467 Code(s): O34.219 - MATERNAL CARE FOR UNSP TYPE SCAR FROM PREVIOUS DEL Status: Acute Current Visit: No (4) Anemia affecting in third trimester SNOMED Code(s): 08827589, 98510373 Code(s): O99.013 - ANEMIA COMPLICATING , THIRD TRIMESTER Status: Acute Current Visit: Yes (5) History of delivery SNOMED Code(s): 788937848 Code(s): Z98.891 - HISTORY OF UTERINE SCAR FROM PREVIOUS SURGERY Status: Acute Current Visit: Yes (6) Vaginal delivery SNOMED Code(s): 674717564 Code(s): O80 - ENCOUNTER FOR FULL-TERM UNCOMPLICATED DELIVERY Status: Acute Current Visit: Yes (7) Vaginal delivery following previous section, delivered SNOMED Code(s): 094211737 Code(s): O34.219 - MATERNAL CARE FOR UNSP TYPE SCAR FROM PREVIOUS DEL Status: Acute Current Visit: Yes (8) First degree perineal laceration during delivery SNOMED Code(s): 643256272 Code(s): O70.0 - FIRST DEGREE PERINEAL LACERATION DURING DELIVERY Status: Acute Current Visit: Yes (9) History of hemorrhage SNOMED Code(s): 536406603 Code(s): Z86.2 - PRSNL HISTORY OF DIS OF THE BLD/BLD-FORM ORG/IMMUN MECHNSM Status: Acute Current Visit: Yes (10) History of hemorrhage, currently in third trimester SNOMED Code(s): 620680440, 66784753, 775136017 Code(s): O09.293 - SUPRVSN OF PREG W POOR REPRODCTV OR OBSTET HX, THIRD TRI Status: Acute Current Visit: Yes - Problem List Review Problem List Initiated/Reviewed/Updated: Yes - My Orders Last 24 Hours: My Active Orders 11/17/18 13:57 Patient Status [ADT] Routine Activity as Tolerated [RC] PFP Communication Order [RC] ASDIRECTED Notify Provider [RC] PFP Notify Provider [RC] PRN Peripheral IV Care [RC] . DIRECTED Urinary Catheter Assessment [RC] ASDIRECTED Vital Signs [RC] PER UNIT ROUTINE Nalbuphine [Nubain] 10 mg IVPUSH Q2H PRN Ondansetron [Zofran] 4 mg IVPUSH Q4H PRN Sodium Chloride 0.9% [Saline Flush] 10 ml FLUSH ASDIRECTED PRN Electronic Heart Tones Ext w TOCO [WOMSER] Routine Electronic Heart Tones Internal [WOMSER] Per Unit Routine Peripheral IV Insertion Adult [OM.PC] Routine Resuscitation Status Routine 11/17/18 14:00 Lactated Ringers [Ringers, Lactated] 1,000 ml IV ASDIRECTED Oxytocin/Lactated Ringers [Pitocin in LR 10 Units/1,000 ML] 10 unit in 1,000 ml IV .CONTINUOUS 11/17/18 17:38 Acetaminophen [Tylenol] 650 mg PO Q4H PRN 11/17/18 18:00 Oxytocin/Lactated Ringers [Pitocin in LR 10 Units/1,000 ML] 10 unit in 1,000 ml IV TITRATE 11/17/18 19:21 Consult to Case Management/Inspector Repairer [place] [CONS] Routine 11/17/18 20:29 Patient Status Manage Transfer [TRANSFER] Routine 11/17/18 Lunch Regular Diet [DIET] - Plan Plan:: Admit to inpatient following normal spontaneous vaginal delivery Continue Pitocin per unit protocol following delivery of placenta and lactated Ringer's until tolerating regular diet. Patient given Methergine 200 mcg IM 1 during delivery due to uterine atony with history of hemorrhage. Regular diet Vitals per unit routine Ibuprofen and Tylenol for pain control Assist with breast-feeding as needed Continue to monitor lochia closely due to history of hemorrhage. Plan for social work consult due to limited care. Check CBC in the morning due to anemia in this with starting hemoglobin of 8.4. Anticipate discharge home on day #2 Jeff Yip MD 8:43 PM 11/17/2018
[2018-11-17] MEDS ORDERED: Witch Hazel Medicated Pads 40/Jar TOP PRN (21:00)
[2018-11-17] MEDS ORDERED: Benzocaine/Menthol 20%-0.5% Spray 56 GM Canister TOP PRN (21:00)
[2018-11-17] MEDS ORDERED: Hydrocortisone Acetate 25 MG Supp RECTAL PRN (21:00)
[2018-11-17] MEDS ORDERED: Lanolin 100% Cream 7 GM Tube TOP PRN (21:00)
[2018-11-17] MEDS ORDERED: Methylergonovine 0.2 MG/1 ML Amp IM PRN (21:00)
[2018-11-17] MEDS ORDERED: Docusate Sodium 100 MG Cap PO PRN (21:00)
[2018-11-17] MEDS ORDERED: Bupivacaine 0.25% 10 ML SDV ONE (22:00)
[2018-11-17] MEDS: Ibuprofen 600 MG Tab PO PRN (22:52)
--- NOTE | 2018-11-18 09:42 | PCM.SN ---
- Free Text/Narrative Note: Post Progress Note PPD # 1 Subjective: Doing well overall. Ambulating without difficulty but did have some lightheadedness with standing shortly after delivery. Denies any lightheadedness more recently with ambulation. Lochia minimal. Voiding without difficulty. Tolerating regular diet without nausea or vomiting. Pain controlled with oral medications. Breast-feeding with minimal difficulty. Objective: Vitals: Vital Signs - 24 hr 11/17/18 11/17/18 11/17/18 13:36 13:57 14:02 Temperature Temperature [ 36.7 C Temporal] Pulse, 122 H 114 H Peripheral Pulse, 110 H Peripheral [ Radial] Respiratory 14 Rate Blood Pressure 123/76 Blood Pressure 123/76 [Upper Arm] O2 Sat by Pulse 100 Oximetry 11/17/18 11/17/18 11/17/18 14:31 15:01 15:30 Temperature Temperature [ Temporal] Pulse, 110 H 117 H 112 H Peripheral Pulse, Peripheral [ Radial] Respiratory Rate Blood Pressure 111/57 L 114/66 Blood Pressure [Upper Arm] O2 Sat by Pulse Oximetry 11/17/18 11/17/18 11/17/18 16:00 16:30 17:01 Temperature Temperature [ Temporal] Pulse, 100 109 H 107 H Peripheral Pulse, Peripheral [ Radial] Respiratory Rate Blood Pressure 108/68 127/62 Blood Pressure [Upper Arm] O2 Sat by Pulse Oximetry 11/17/18 11/17/18 11/17/18 17:31 18:01 18:30 Temperature Temperature [ Temporal] Pulse, 100 104 H 102 H Peripheral Pulse, Peripheral [ Radial] Respiratory Rate Blood Pressure 123/62 133/80 Blood Pressure [Upper Arm] O2 Sat by Pulse Oximetry 11/17/18 11/17/18 11/18/18 19:00 22:58 04:25 Temperature 36.6 C 36.4 C Temperature [ Temporal] Pulse, 107 H 93 Peripheral Pulse, Peripheral [ Radial] Respiratory 16 15 Rate Blood Pressure 124/81 109/72 112/72 Blood Pressure [Upper Arm] O2 Sat by Pulse 97 Oximetry Physical Exam General: Alert and oriented, no acute distress Lungs: Clear to auscultation bilaterally Heart: Regular rate and rhythm Abdomen: Soft, minimal appropriate tenderness, non-distended, fundus midline, nontender, and at the umbilicus Extremities: No edema Laboratory Tests 11/17/18 11/17/1819 Range/Units 14:00 14:00 14:00 WBC 10.15 H (3.98-10.04) K/mm3 RBC 4.30 (3.98-5.22) M/mm3 Hgb 8.4 L (11.2-15.7) gm/L Hct 29.1 L (34.1-44.9) % MCV 67.7 L D (79.4-94.8) fl MCH 19.5 L (25.6-32.2) pg MCHC 28.9 L (32.2-35.5) g/dl RDW Std Deviation 42.7 (36.4-46.3) fL Plt Count 362 (182-369) K/mm3 MPV 7.4 L (9.4-12.3) fl Neut % (Auto) 82.7 H (34.0-71.1) % Lymph % (Auto) 11.9 L (19.3-51.7) % [place] % (Auto) 4.6 L (4.7-12.5) % Eos % (Auto) 0.3 L (0.7-5.8) Baso % (Auto) 0.2 (0.1-1.2) % Neut # (Auto) 8.39 H (1.56-6.13) K/mm3 Lymph # (Auto) 1.21 (1.18-3.74) K/mm3 [place] # (Auto) 0.47 H (0.24-0.36) K/mm3 Eos # (Auto) 0.03 L (0.04-0.36) K/mm3 Baso # (Auto) 0.02 (0.01-0.08) K/mm3 Manual Slide Review Abnormal smear Urine Opiates Screen (HCJRAP=471) Ur Buprenorphine Scrn (CUTOFF=10) Ur Oxycodone Screen (ARL6ST=677) Urine Methadone Screen (RWGUFZ=979) Ur Propoxyphene Screen (GKACUI=598) Ur Barbiturates Screen (QIMREU=774) Ur Tricyclics Screen (UYBEFJ=824) Ur Phencyclidine Scrn (CUTOFF=25) Ur Amphetamine Screen (JCBPOJ=771) U Methamphetamines Scrn (YPOANR=770) U Benzodiazepines Scrn (BXBLQD=030) U Cocaine Metab Screen (FSGTFL=369) U Marijuana (THC) Screen (CUTOFF=50) RPR Non-reactive (NONREACTIVE) Blood Type O POSITIVE Gel Antibody Screen Negative 11/17/18 11/18/18 Range/Units 14:32 05:55 WBC 14.00 H (3.98-10.04) K/mm3 RBC 3.48 L (3.98-5.22) M/mm3 Hgb 6.7 L* D (11.2-15.7) gm/L Hct 23.9 L (34.1-44.9) % MCV 68.7 L (79.4-94.8) fl MCH 19.3 L (25.6-32.2) pg MCHC 28.0 L (32.2-35.5) g/dl RDW Std Deviation 41.7 (36.4-46.3) fL Plt Count 318 (182-369) K/mm3 MPV 7.9 L (9.4-12.3) fl Neut % (Auto) 78.2 H (34.0-71.1) % Lymph % (Auto) 15.2 L (19.3-51.7) % [place] % (Auto) 5.6 (4.7-12.5) % Eos % (Auto) 0.5 L (0.7-5.8) Baso % (Auto) 0.1 (0.1-1.2) % Neut # (Auto) 10.94 H (1.56-6.13) K/mm3 Lymph # (Auto) 2.13 (1.18-3.74) K/mm3 [place] # (Auto) 0.79 H (0.24-0.36) K/mm3 Eos # (Auto) 0.07 (0.04-0.36) K/mm3 Baso # (Auto) 0.02 (0.01-0.08) K/mm3 Manual Slide Review Abnormal smear Urine Opiates Screen Negative (PVSJRJ=631) Ur Buprenorphine Scrn Negative (CUTOFF=10) Ur Oxycodone Screen Negative (RPM9GL=462) Urine Methadone Screen Negative (QIDHUM=297) Ur Propoxyphene Screen Negative (OAJPCT=513) Ur Barbiturates Screen Negative (NSDWAU=730) Ur Tricyclics Screen Negative (ENFCJJ=665) Ur Phencyclidine Scrn Negative (CUTOFF=25) Ur Amphetamine Screen Negative (YBEBVG=786) U Methamphetamines Scrn Negative (TUEJWS=058) U Benzodiazepines Scrn Negative (ECQSOZ=425) U Cocaine Metab Screen Negative (LBVGYO=288) U Marijuana (THC) Screen Negative (CUTOFF=50) RPR (NONREACTIVE) Blood Type Gel Antibody Screen ASSESSMENT: 22-year-old female 005 s/p vaginal delivery after section PPD #1 , complicated by acute blood loss anemia, limited care, history of section and history of hemorrhage PLAN: Doing well Breast-feeding with minimal difficulty. Assist as needed Lochia minimal. Continue to monitor for appropriate lochia. Continue routine care Patient with hemoglobin of 6.7 on lab this morning. Discussed with patient that we would recommend for blood transfusion when she has a hemoglobin of less than 7. Discussed the risks and benefits of the blood transfusion and she desires to have transfusion. We will order one unit and repeat the CBC 6 hours after completion of the transfusion and decide if she needs additional blood at that time. Social work consult for limited care and difficult social situation. We will work on getting records from clinic in [place] to follow-up on her labs. If we are unable to obtain her record her labs then we will draw a panel prior to discharge. Anticipate discharge home tomorrow Jeff Yip MD 9:41 AM 11/18/2018
[2018-11-18] MEDS ORDERED: diphenhydrAMINE 50 MG/ML SDV IVPUSH ONE (09:54)
[2018-11-18] MEDS ORDERED: Sodium Chloride 0.9% 1,000 ML IV SCH (10:00)
[2018-11-18] MEDS: Prenatal Multivitamin with Calcium/Folic Acid/Iron Tab PO SCH (10:16)
[2018-11-18] MEDS: Ferrous Sulfate 325 MG Tab PO SCH (10:16)
[2018-11-18] MEDS: Ibuprofen 600 MG Tab PO PRN (20:16)
[2018-11-19] MEDS: Ferrous Sulfate 325 MG Tab PO SCH (06:39)
--- NOTE | 2018-11-19 08:04 | PCM.SN ---
- Free Text/Narrative Note: Post Progress Note PPD # 2 Subjective: Doing well overall. Ambulating without difficulty. Reports her lightheadedness has improved after blood transfusion. Not having any lightheadedness with standing or walking. Lochia minimal and feels like bleeding is decreasing. Voiding without difficulty. Tolerating regular diet without nausea or vomiting. Pain controlled with oral medications. Breast and bottle feeding with minimal difficulty until she has better milk supply. Objective: Vitals: Vital Signs - 24 hr 11/18/18 11/18/18 11/18/18 10:12 11:08 11:09 Temperature 36.7 C 36.4 C 36.4 C Pulse, 87 82 Peripheral Pulse, 82 Peripheral [ Radial] Respiratory 14 16 16 Rate Blood Pressure 105/54 L 112/70 Blood Pressure 112/70 [Upper Arm] O2 Sat by Pulse 100 99 99 Oximetry 11/18/18 11/18/18 11/18/18 11:28 11:55 13:31 Temperature 36.3 C 36.3 C 36.2 C Pulse, 88 81 Peripheral Pulse, 83 Peripheral [ Radial] Respiratory 14 14 14 Rate Blood Pressure 115/73 111/63 Blood Pressure 115/73 [Upper Arm] O2 Sat by Pulse 100 99 Oximetry 11/18/18 11/18/18 11/18/18 13:32 16:32 20:12 Temperature 36.2 C 36.2 C 36.6 C Pulse, 99 100 Peripheral Pulse, 81 Peripheral [ Radial] Respiratory 16 14 16 Rate Blood Pressure 110/68 114/67 Blood Pressure 111/63 [Upper Arm] O2 Sat by Pulse 98 100 Oximetry 11/19/18 04:31 Temperature 36.6 C Pulse, 78 Peripheral Pulse, Peripheral [ Radial] Respiratory Rate Blood Pressure 116/71 Blood Pressure [Upper Arm] O2 Sat by Pulse 98 Oximetry Physical Exam General: Alert and oriented, no acute distress Lungs: Clear to auscultation bilaterally Heart: Regular rate and rhythm Abdomen: Soft, minimal appropriate tenderness, non-distended, fundus midline, nontender, and at the umbilicus Extremities: No edema Laboratory Tests 11/17/18 11/17/18 11/17/18 Range/Units 13:52 14:00 14:00 WBC 10.15 H (3.98-10.04) K/mm3 RBC 4.30 (3.98-5.22) M/mm3 Hgb 8.4 L (11.2-15.7) gm/L Hct 29.1 L (34.1-44.9) % MCV 67.7 L D (79.4-94.8) fl MCH 19.5 L (25.6-32.2) pg MCHC 28.9 L (32.2-35.5) g/dl RDW Std Deviation 42.7 (36.4-46.3) fL Plt Count 362 (182-369) K/mm3 MPV 7.4 L (9.4-12.3) fl Neut % (Auto) 82.7 H (34.0-71.1) % Lymph % (Auto) 11.9 L (19.3-51.7) % [place] % (Auto) 4.6 L (4.7-12.5) % Eos % (Auto) 0.3 L (0.7-5.8) Baso % (Auto) 0.2 (0.1-1.2) % Neut # (Auto) 8.39 H (1.56-6.13) K/mm3 Lymph # (Auto) 1.21 (1.18-3.74) K/mm3 [place] # (Auto) 0.47 H (0.24-0.36) K/mm3 Eos # (Auto) 0.03 L (0.04-0.36) K/mm3 Baso # (Auto) 0.02 (0.01-0.08) K/mm3 Manual Slide Review Abnormal smear Urine Opiates Screen (CYXVUJ=987) Ur Buprenorphine Scrn (CUTOFF=10) Ur Oxycodone Screen (MCI2BQ=311) Urine Methadone Screen (PBJCOO=755) Ur Propoxyphene Screen (KANQHG=330) Ur Barbiturates Screen (DDLWSR=307) Ur Tricyclics Screen (BMWIKP=409) Ur Phencyclidine Scrn (CUTOFF=25) Ur Amphetamine Screen (PEHTWE=359) U Methamphetamines Scrn (DSHRHY=502) U Benzodiazepines Scrn (OEFTLI=530) U Cocaine Metab Screen (TIVAYV=820) U Marijuana (THC) Screen (CUTOFF=50) RPR Non-reactive (NONREACTIVE) Group B Strep (PCR) Negative (NEGATIVE) Blood Type Gel Antibody Screen Crossmatch 11/17/18 11/17/18 11/18/18 Range/Units 14:00 14:32 05:55 WBC 14.00 H (3.98-10.04) K/mm3 RBC 3.48 L (3.98-5.22) M/mm3 Hgb 6.7 L* D (11.2-15.7) gm/L Hct 23.9 L (34.1-44.9) % MCV 68.7 L (79.4-94.8) fl MCH 19.3 L (25.6-32.2) pg MCHC 28.0 L (32.2-35.5) g/dl RDW Std Deviation 41.7 (36.4-46.3) fL Plt Count 318 (182-369) K/mm3 MPV 7.9 L (9.4-12.3) fl Neut % (Auto) 78.2 H (34.0-71.1) % Lymph % (Auto) 15.2 L (19.3-51.7) % [place] % (Auto) 5.6 (4.7-12.5) % Eos % (Auto) 0.5 L (0.7-5.8) Baso % (Auto) 0.1 (0.1-1.2) % Neut # (Auto) 10.94 H (1.56-6.13) K/mm3 Lymph # (Auto) 2.13 (1.18-3.74) K/mm3 [place] # (Auto) 0.79 H (0.24-0.36) K/mm3 Eos # (Auto) 0.07 (0.04-0.36) K/mm3 Baso # (Auto) 0.02 (0.01-0.08) K/mm3 Manual Slide Review Abnormal smear Urine Opiates Screen Negative (PLGERS=689) Ur Buprenorphine Scrn Negative (CUTOFF=10) Ur Oxycodone Screen Negative (JKN9UB=789) Urine Methadone Screen Negative (RQKBVH=221) Ur Propoxyphene Screen Negative (MDHZNF=344) Ur Barbiturates Screen Negative (EHPGNY=169) Ur Tricyclics Screen Negative (ALXQMV=475) Ur Phencyclidine Scrn Negative (CUTOFF=25) Ur Amphetamine Screen Negative (LUZKMX=676) U Methamphetamines Scrn Negative (YKEGNK=671) U Benzodiazepines Scrn Negative (SCVBBU=510) U Cocaine Metab Screen Negative (PEKAZL=554) U Marijuana (THC) Screen Negative (CUTOFF=50) RPR (NONREACTIVE) Group B Strep (PCR) (NEGATIVE) Blood Type O POSITIVE Gel Antibody Screen Negative Crossmatch See Detail 11/18/18 Range/Units 20:05 WBC 11.22 H (3.98-10.04) K/mm3 RBC 3.70 L (3.98-5.22) M/mm3 Hgb 7.7 L (11.2-15.7) gm/L Hct 25.6 L (34.1-44.9) % MCV 69.2 L (79.4-94.8) fl MCH 20.8 L (25.6-32.2) pg MCHC 30.1 L (32.2-35.5) g/dl RDW Std Deviation 44.8 (36.4-46.3) fL Plt Count 341 (182-369) K/mm3 MPV 7.9 L (9.4-12.3) fl Neut % (Auto) 76.9 H (34.0-71.1) % Lymph % (Auto) 16.9 L (19.3-51.7) % [place] % (Auto) 4.7 (4.7-12.5) % Eos % (Auto) 0.6 L (0.7-5.8) Baso % (Auto) 0.3 (0.1-1.2) % Neut # (Auto) 8.62 H (1.56-6.13) K/mm3 Lymph # (Auto) 1.90 (1.18-3.74) K/mm3 [place] # (Auto) 0.53 H (0.24-0.36) K/mm3 Eos # (Auto) 0.07 (0.04-0.36) K/mm3 Baso # (Auto) 0.03 (0.01-0.08) K/mm3 Manual Slide Review Abnormal smear Urine Opiates Screen (TMFEMD=261) Ur Buprenorphine Scrn (CUTOFF=10) Ur Oxycodone Screen (JLD9NP=198) Urine Methadone Screen (WABIPG=884) Ur Propoxyphene Screen (XFUHOK=832) Ur Barbiturates Screen (SGAZHC=104) Ur Tricyclics Screen (HZSVOA=437) Ur Phencyclidine Scrn (CUTOFF=25) Ur Amphetamine Screen (AETKEE=839) U Methamphetamines Scrn (TWSNOU=345) U Benzodiazepines Scrn (NKTRFX=997) U Cocaine Metab Screen (LEQHSI=502) U Marijuana (THC) Screen (CUTOFF=50) RPR (NONREACTIVE) Group B Strep (PCR) (NEGATIVE) Blood Type Gel Antibody Screen Crossmatch Review of labs from record labs Blood type: O+ Antibody screen: Negative Hematocrit/hemoglobin: 40.1%/12.6 on 04/01/2018 Platelets: 389 on 04/01/2018 Urine culture: GBS bacteriuria Rubella status: Immune Hepatitis B surface antigen: Negative RPR: Negative Hepatitis C: Positive HIV: Negative Pap smear: Negative for intraepithelial lesion or malignancy. Satisfactory for evaluation. Transformation zone not present in patient. Gonorrhea: Negative on 04/01/2018 Chlamydia: Negative on 04/01/2018 ASSESSMENT: 22-year-old female 005 s/p vaginal delivery after section PPD #2 , complicated by acute blood loss anemia status post 1 unit PRBC blood transfusion, limited care, history of section and history of hemorrhage, GBS bacteriuria unknown at time of labor and hepatitis C positive PLAN: Doing well Breast-feeding with minimal difficulty. Assist as needed Lochia minimal. Continue to monitor for appropriate lochia. Continue routine care Patient with hemoglobin of 7.7 on lab after 1 unit PRBC blood transfusion. Patient states she is doing well. Do not need additional blood transfusion at this time. 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 Seen by social work yesterday for limited care and difficult social situation. Follow up as per their recommendations Anticipate discharge home late today due to GBS bacteruria and untreated in labor Jeff Yip MD 7:55 AM 11/19/2018
--- NOTE | 2018-11-19 08:13 | PCM.DCSUM1 ---
Discharge Summary - Hospital Course Free Text/Narrative:: - General Info Date of Service: 11/17/18 Mother's Due Date: 11/27/18 - Delivery Note Labor: Spontaneous, Augmented by ARM Delivery Outcome: Livebirth Delivery Method: Spontaneous Vaginal Delivery-Single Presentation: Left Occiput Anterior (JACQUE) Nuchal Cord: Present (x 1), Reduced Prep: Povidone-Iodine (Betadine Anesthesia Type: Epidural, Local Anesthetic: Lidocaine (Xylocaine) 1% Plain Local Anesthetic Volume: Other (8 cc) Amniotic Fluid Description: Clear Episiotomy Type: None Laceration: 1st Degree, Vaginal (left, repaired with 4-0 Vicryl and two figure of 8 sutures of 4-0 Vicryl) Suture type: Vicryl Suture size: 4-0 Placenta: Intact, Spontaneous Cord: 3 Vessels Estimated Blood Loss: 400 Resuscitation Needed: Yes Gleason: Suctioned, Bulb Syringe, Stimulated, Warmed, [place] Used, Warmer Used Provider: Jeff Yip Score 1 min: 7 Score 5 min: 9 Second Stage Interventions: Reports: Pushing Effectively, Pushing, Pulls Own Legs Back Delivery Comments (Free Text/Narrative):: Stage I: Jamison Almodovar was admitted for spontaneous labor. On admission her cervix was dilated to 4 cm. She was GBS unknown but did not have any risk factors indicating need for antibiotic prophylaxis. GBS swab was collected. She was given an epidural for anesthesia. She had artificial rupture membranes with clear fluid. She progressed complete and pushing. Stage II: On 11/17/2018 she had a normal vaginal delivery of a live male at 1947. Apgars of 7 & 9. Weight of 3400 g (7 lbs 7.9 oz). Length of 21 inches. There was a single nuchal cord that was reduced prior to delivery. Infant was delivered in JACQUE position. The cord was doubly clamped and cut by myself. Infant was placed on mother's abdomen. Stage III: She had a spontaneous delivery of an intact placenta in Amos presentation. Three vessel cord. She was given pitocin and fundal massage. She had a first-degree left vaginal laceration that was repaired with 4-0 Vicryl and 2 [id number] sutures with 4-0 Vicryl. She had continued bleeding with uterine atony and was given Methergine 200 mcg IM 1 dose. She had drainage of the bladder using straight catheter after cleansing the urethra with Betadine 3. She had approximately 100 mL of urine drained with the catheterization. Mom and baby were stable to recovery. EBL of 400 mL. HPI Initial Comments: - General Info Date of Service: 11/17/18 Mother's Due Date: 11/27/18 - Delivery Note Labor: Spontaneous, Augmented by ARM Delivery Outcome: Livebirth Infant Delivery Method: Spontaneous Vaginal Delivery-Single Presentation: Left Occiput Anterior (JACQUE) Nuchal Cord: Present (x 1), Reduced Prep: Povidone-Iodine (Betadine Anesthesia Type: Epidural, Local Anesthetic: Lidocaine (Xylocaine) 1% Plain Local Anesthetic Volume: Other (8 cc) Amniotic Fluid Description: Clear Episiotomy Type: None Laceration: 1st Degree, Vaginal (left, repaired with 4-0 Vicryl and two figure of 8 sutures of 4-0 Vicryl) Suture type: Vicryl Suture size: 4-0 Placenta: Intact, Spontaneous Cord: 3 Vessels Estimated Blood Loss: 400 Resuscitation Needed: Yes Gleason: Suctioned, Bulb Syringe, Stimulated, Warmed, [place] Used, Warmer Used Provider: Jeff Yip Score 1 min: 7 Score 5 min: 9 Second Stage Interventions: Reports: Pushing Effectively, Pushing, Pulls Own Legs Back Delivery Comments (Free Text/Narrative):: Stage I: Jamison Almodovar was admitted for spontaneous labor. On admission her cervix was dilated to 4 cm. She was GBS unknown but did not have any risk factors indicating need for antibiotic prophylaxis. GBS swab was collected. She was given an epidural for anesthesia. She had artificial rupture membranes with clear fluid. She progressed complete and pushing. Stage II: On 11/17/2018 she had a normal vaginal delivery of a live male infant at 1949. Apgars of 7 & 9. Weight of 3400 g (7 lbs 7.9 oz). Length of 21 inches. There was a single nuchal cord that was reduced prior to delivery. was delivered in JACQUE position. The cord was doubly clamped and cut by myself. was placed on mother's abdomen. Stage III: She had a spontaneous delivery of an intact placenta in Amos presentation. Three vessel cord. She was given pitocin and fundal massage. She had a first-degree left vaginal laceration that was repaired with 4-0 Vicryl and 2 [id number]-[id number] sutures with 4-0 Vicryl. She had continued bleeding with uterine atony and was given Methergine 200 mcg IM 1 dose. She had drainage of the bladder using straight catheter after cleansing the urethra with Betadine 3. She had approximately 100 mL of urine drained with the catheterization. Mom and baby were stable to recovery. EBL of 400 mL. Brief History: - General Info. Date of Service: 11/17/18. Mother's Due Date: 11/27/18. - Delivery Note. Labor: Spontaneous, Augmented by ARM. Delivery Outcome: Livebirth. Infant Delivery Method: Spontaneous Vaginal Delivery- Single. Presentation: Left Occiput Anterior (JACQUE). Nuchal Cord: Present (x 1), Reduced. Prep: Povidone-Iodine (Betadine. Anesthesia Type: Epidural, Local. Anesthetic: Lidocaine (Xylocaine) 1% Plain. Local Anesthetic Volume: Other (8 cc). Amniotic Fluid Description: Clear. Episiotomy Type: None. Laceration: 1st Degree, Vaginal (left, repaired with 4-0 Vicryl and two figure of 8 sutures of 4-0 Vicryl). Suture type: Vicryl. Suture size: 4-0. Placenta : Intact, Spontaneous. Cord: 3 Vessels. Estimated Blood Loss: 400. Resuscitation Needed: Yes. Gleason: Suctioned, Bulb Syringe, Stimulated, Warmed , [place] Used, Warmer Used. Provider: Jeff Yip. Score 1 min: 7. Score 5 min: 9. Second Stage Interventions: Reports: Pushing Effectively, Pushing, Pulls Own Legs Back. Delivery Comments (Free Text/ Narrative):: Stage I: Jamison Almodovar was admitted for spontaneous labor. On admission her cervix was dilated to 4 cm. She was GBS unknown but did not have any risk factors indicating need for antibiotic prophylaxis. GBS swab was collected. She was given an epidural for anesthesia. She had artificial rupture membranes with clear fluid. She progressed complete and pushing. Stage II: On 11/17/2018 she had a normal vaginal delivery of a live male at 1949. Apgars of 7 & 9. Weight of 3400 g (7 lbs 7.9 oz). Length of 21 inches. There was a single nuchal cord that was reduced prior to delivery. Infant was delivered in JACQUE position. The cord was doubly clamped and cut by myself. Infant was placed on mother's abdomen. Stage III: She had a spontaneous delivery of an intact placenta in Amos presentation. Three vessel cord. She was given pitocin and fundal massage. She had a first-degree left vaginal laceration that was repaired with 4-0 Vicryl and 2 [id number]-[id number] sutures with 4-0 Vicryl. She had continued bleeding with uterine atony and was given Methergine 200 mcg IM 1 dose. She had drainage of the bladder using straight catheter after cleansing the urethra with Betadine 3. She had approximately 100 mL of urine drained with the catheterization. Mom and baby were stable to recovery. EBL of 400 mL. Diagnosis: Stroke: No - Discharge Data Discharge Date: 11/19/18 Discharge Disposition: Home, Self-Care 01 Condition: Good - Discharge Diagnosis/Problem(s) (1) 38 weeks gestation of SNOMED Code(s): 24179586 ICD Code: Z3A.38 - 38 WEEKS GESTATION OF Status: Acute Current Visit: Yes (2) Limited care in third trimester SNOMED Code(s): 402981944, 637392989 ICD Code: O09.33 - SUPRVSN OF PREG W INSUFFICIENT ANTENAT CARE, THIRD TRIMESTER Status: Acute Current Visit: Yes (3) Hx successful (vaginal after ), currently SNOMED Code(s): 826900162, 117570736, 955030361 ICD Code: O34.219 - MATERNAL CARE FOR UNSP TYPE SCAR FROM PREVIOUS DEL Status: Acute Current Visit: No (4) Anemia affecting in third trimester SNOMED Code(s): 66577823, 94231072 ICD Code: O99.013 - ANEMIA COMPLICATING , THIRD TRIMESTER Status: Acute Current Visit: Yes (5) History of delivery SNOMED Code(s): 656478339 ICD Code: Z98.891 - HISTORY OF UTERINE SCAR FROM PREVIOUS SURGERY Status: Acute Current Visit: Yes (6) Vaginal delivery SNOMED Code(s): 296225514 ICD Code: O80 - ENCOUNTER FOR FULL-TERM UNCOMPLICATED DELIVERY Status: Acute Current Visit: Yes (7) Vaginal delivery following previous section, delivered SNOMED Code(s): 966997245 ICD Code: O34.219 - MATERNAL CARE FOR UNSP TYPE SCAR FROM PREVIOUS DEL Status: Acute Current Visit: Yes (8) First degree perineal laceration during delivery SNOMED Code(s): 838945651 ICD Code: O70.0 - FIRST DEGREE PERINEAL LACERATION DURING DELIVERY Status: Acute Current Visit: Yes (9) History of hemorrhage SNOMED Code(s): 307295336 ICD Code: Z86.2 - PRSNL HISTORY OF DIS OF THE BLD/BLD-FORM ORG/IMMUN MECHNSM Status: Acute Current Visit: Yes (10) History of hemorrhage, currently in third trimester SNOMED Code(s): 123669873, 12360030, 415526057 ICD Code: O09.293 - SUPRVSN OF PREG W POOR REPRODCTV OR OBSTET HX, THIRD TRI Status: Acute Current Visit: Yes (11) Maternal blood transfusion SNOMED Code(s): 592429840, 823571573 ICD Code: O99.89 - OTH DISEASES AND CONDITIONS COMPL PREG/CHLDBRTH Status: Acute Current Visit: Yes - Patient Summary/Data Complications: Acute blood loss anemia requiring 1 units PRBC blood transfusion Consults: Consultations 11/17/18 19:21 Consult to Case Management/Community Center Worker [CONS] Routine Hospital Course: Jamison Almodovar was admitted for spontaneous labor. On admission her cervix was dilated to 4 cm. She was GBS unknown but not have any risk factors indicating need for antibiotic prophylaxis. A GBS swab was collected that eventually resulted as negative. After delivery received her records that showed positive GBS bacteriuria. She was given an epidural for anesthesia. She had artificial rupture of membranes with clear fluid. She progressed to complete and began pushing. On 11/17/2018 she had a normal vaginal delivery of a live male at 1949. Apgars of 7 and 9. Weight of 3400 g (7 pounds 7.9 ounces). Her course was complicated by acute blood loss anemia with a hemoglobin of 6. 7 in the morning of day # 1. She was given 1 unit PRBC blood transfusion and her hemoglobin ana to 7.7 after the transfusion. She was doing well after the blood transfusion. Her pain was well controlled and she had minimal lochia. She was ambulating, tolerating a regular diet and voiding normally. She was breast and bottlefeeding with minimal difficulty and was going to continue this until she had a better milk supply. She was afebrile and her hemoglobin was 7.7 on day #1 after 1 unit PRBC blood transfusion. She desired to be discharged home on the evening of PPD #2. Her blood type is O+. Patient is hepatitis C positive and would recommend for hepatology or GI follow-up for management. - Patient Instructions Diet: Regular Diet as Tolerated Activity: Apply Ice, As Tolerated Activity, Other: Nothing in the vagina for 6 weeks. Driving: May Drive Today Showering/Bathing: May Shower Notify Provider of: Fever, Increased Pain, Swelling and Redness, Drainage, Nausea and/or Vomiting Other/Special Instructions: Please contact your physician's office if you have heavy vaginal bleeding enough to soak a pad in less than an hour for several hours. Monitor for any signs of an infection in the breasts with severe pain or redness of the breast. - Discharge Plan *PRESCRIPTION DRUG MONITORING PROGRAM REVIEWED*: No *COPY OF PRESCRIPTION DRUG MONITORING REPORT IN PATIENT DOMINIQUE: No Home Medications: Home Meds Acetaminophen [Tylenol] 650 mg PO Q4H PRN tablet 07/30/17 [Rx] Pnv No.122/Iron/Folic Acid [ Multi Tablet] 1 each PO DAILY 11/17/18 [ History] Benzocaine/Menthol [Dermoplast Pain Relief Foster] 1 spray TOP ASDIRECTED PRN canister 11/19/18 [Rx] Docusate Sodium [Colace] 100 mg PO BID PRN cap 11/19/18 [Rx] Ferrous Sulfate 325 mg PO WITHBREAKFAST tablet 11/19/18 [Rx] Hydrocortisone Acetate [Anucort-HC] 25 mg RECTAL BID PRN supp 11/19/18 [Rx] Ibuprofen [Motrin] 600 mg PO Q6H PRN tablet 11/19/18 [Rx] Lanolin [Lansinoh HPA] 1 applic TOP ASDIRECTED PRN tube 11/19/18 [Rx] Witch Bernie [Tucks] 1 pad TOP ASDIRECTED PRN pad 11/19/18 [Rx] Patient Handouts: Care of a Perineal Tear, Care After Vaginal Delivery, Blood Transfusion, Adult, Care After, [id number] Referrals: Jeff Yip MD [Primary Care Provider] - (Follow-up with myself or at the [facility] in 2-6 weeks or earlier as needed for routine visit.) - Discharge Summary/Plan Comment DC Time >30 min.: No - Patient Data Vitals - Most Recent: Last Vital Signs Temp 36.6 C 11/19/18 04:31 Pulse 78 11/19/18 04:31 Resp 16 11/18/18 20:12 BP 116/71 11/19/18 04:31 Pulse Ox 98 11/19/18 04:31 Weight - Most Recent: 73.482 kg I&O - Last 24 hours: Intake & Output 11/18/18 11/19/18 11/19/18 22:59 06:59 14:59 Intake Total 440 Balance 440 Lab Results - Last 24 hrs: Laboratory Results - last 24 hr 11/17/18 11/17/18 11/18/18 Range/Units 13:52 14:00 20:05 WBC 11.22 H (3.98-10.04) K/mm3 RBC 3.70 L (3.98-5.22) M/mm3 Hgb 7.7 L (11.2-15.7) gm/L Hct 25.6 L (34.1-44.9) % MCV 69.2 L (79.4-94.8) fl MCH 20.8 L (25.6-32.2) pg MCHC 30.1 L (32.2-35.5) g/dl RDW Std Deviation 44.8 (36.4-46.3) fL Plt Count 341 (182-369) K/mm3 MPV 7.9 L (9.4-12.3) fl Neut % (Auto) 76.9 H (34.0-71.1) % Lymph % (Auto) 16.9 L (19.3-51.7) % [place] % (Auto) 4.7 (4.7-12.5) % Eos % (Auto) 0.6 L (0.7-5.8) Baso % (Auto) 0.3 (0.1-1.2) % Neut # (Auto) 8.62 H (1.56-6.13) K/mm3 Lymph # (Auto) 1.90 (1.18-3.74) K/mm3 [place] # (Auto) 0.53 H (0.24-0.36) K/mm3 Eos # (Auto) 0.07 (0.04-0.36) K/mm3 Baso # (Auto) 0.03 (0.01-0.08) K/mm3 Manual Slide Review Abnormal smear Group B Strep (PCR) Negative (NEGATIVE) Blood Type O POSITIVE Gel Antibody Screen Negative Crossmatch See Detail Med Orders - Current: Current Medications Acetaminophen (Tylenol) 650 mg PO Q6H PRN PRN Reason: mild pain or fever Benzocaine/Menthol (Dermoplast Pain Relief Foster) 0 gm TOP ASDIRECTED PRN PRN Reason: Perineal Comfort Measure Last Admin: 11/17/18 22:54 Dose: 1 spray Docusate Sodium (Colace) 100 mg PO BID PRN PRN Reason: Constipation Last Admin: 11/19/18 06:39 Dose: 100 mg Emollient Ointment (Lansinoh Hpa) 0 gm TOP ASDIRECTED PRN PRN Reason: Sore Nipples Last Admin: 11/18/18 13:51 Dose: 1 tube Ferrous Sulfate (Ferrous Sulfate) 325 mg PO WITHBREAKFAST LAURE Last Admin: 11/19/18 06:39 Dose: 325 mg Hydrocortisone Acetate (Anucort-Hc) 25 mg RECTAL BID PRN PRN Reason: Hemorrhoid pain Oxytocin/Lactated Ringer's (Pitocin In Lr 10 Units/1,000 Ml) 10 unit in 1,000 mls @ 100 mls/hr IV TITRATE LAURE; Protocol Sodium Chloride (Normal Saline) 1,000 mls @ 125 mls/hr IV ASDIRECTED LAURE Last Admin: 11/18/18 11:05 Dose: 125 mls/hr Ibuprofen (Motrin) 600 mg PO Q6H PRN PRN Reason: Mild pain or fever Last Admin: 11/18/18 20:16 Dose: 600 mg Methylergonovine Maleate (Methergine) 0.2 mg IM ONETIME PRN PRN Reason: Excessive Vaginal Bleeding Last Admin: 11/18/18 00:38 Dose: 0.2 mg Prenat Multivit/Chiller Operator/Iron/Folic Ac ( Plus Iron) 1 each PO DAILY LAURE Last Admin: 11/18/18 10:16 Dose: 1 each Witch Bernie (Tucks) 1 pad TOP ASDIRECTED PRN PRN Reason: Perineal Comfort Measure Last Admin: 11/17/18 22:53 Dose: 1 applic Discontinued Medications Acetaminophen (Tylenol) 650 mg PO Q4H PRN PRN Reason: headache, pain Last Admin: 11/17/18 17:55 Dose: 650 mg Diphenhydramine HCl (Benadryl) 25 mg IVPUSH Q6H PRN PRN Reason: Pruritis Diphenhydramine HCl (Benadryl) 25 mg IVPUSH Q6H PRN PRN Reason: Pruritis Diphenhydramine HCl (Benadryl) 25 mg IVPUSH ONETIME ONE Stop: 11/18/18 09:55 Last Admin: 11/18/18 21:02 Dose: Not Given Ephedrine Sulfate (Ephedrine Sulfate) 5 mg IVPUSH ONETIME PRN PRN Reason: Hypotension Ephedrine Sulfate (Ephedrine Sulfate) 5 mg IVPUSH ONETIME PRN PRN Reason: Hypotension Fentanyl (Sublimaze) 100 mcg EPIDUR Q3H PRN PRN Reason: Pain Fentanyl (Sublimaze) Confirm Administered Dose 100 mcg .ROUTE .STK-MED ONE Stop: 11/17/18 14:30 Last Admin: 11/17/18 17:33 Dose: Not Given Fentanyl (Sublimaze) 100 mcg EPIDUR Q3H PRN PRN Reason: Pain Fentanyl (Sublimaze) 100 mcg EPIDUR Q3H PRN PRN Reason: Pain Fentanyl/Bupivacaine HCl (Fentanyl/Bupivacaine/Ns 2 Mcg-0.125% 100 Ml) 100 ml EPIDUR ASDIRECTED LAURE Lactated Ringer's (Ringers, Lactated) 1,000 mls @ 100 mls/hr IV ASDIRECTED [facility] Last Admin: 11/17/18 18:22 Dose: 100 mls/hr Oxytocin/Lactated Ringer's (Pitocin In Lr 10 Units/1,000 Ml) 10 unit in 1,000 mls @ 500 mls/hr IV .CONTINUOUS LAURE Lactated Ringer's (Ringers, Lactated) 1,000 mls @ 125 mls/hr IV ASDIRECTED [facility] Last Admin: 11/17/18 15:05 Dose: 125 mls/hr Oxytocin/Lactated Ringer's (Pitocin In Lr 10 Units/1,000 Ml) 10 unit in 1,000 mls @ 12 mls/hr IV TITRATE LAURE; Protocol Last Admin: 11/17/18 18:26 Dose: 2 munits/min, 12 mls/hr Lidocaine HCl (Xylocaine 1%) Confirm Administered Dose 50 ml .ROUTE .STK-MED ONE Stop: 11/17/18 20:01 Last Admin: 11/17/18 20:00 Dose: 50 ml Lidocaine/Sodium Bicarbonate (Buffered Lidocaine 1% In Ns 8.4%) 0.25 ml IDERM ONETIME PRN PRN Reason: Prior to IV Start Nalbuphine HCl (Nubain) 10 mg IVPUSH Q2H PRN PRN Reason: pain Ondansetron HCl (Zofran) 4 mg IVPUSH Q4H PRN PRN Reason: Nausea/Vomiting Sodium Chloride (Saline Flush) 10 ml FLUSH ASDIRECTED PRN PRN Reason: Keep Vein Open Sodium Chloride (Saline Flush) 10 ml FLUSH ASDIRECTED PRN PRN Reason: Keep Vein Open
[2018-11-19] MEDS: Prenatal Multivitamin with Calcium/Folic Acid/Iron Tab PO SCH (09:29)
[2018-11-19] MEDS: Acetaminophen 325 MG Tab PO PRN ×2 (09:29→18:22)
[2018-11-19] MEDS: Ibuprofen 600 MG Tab PO PRN (12:57)
== END 2018-11-19 18:25 | disposition home or self-care (01) | DRG 806 ==
LOC: JD.OBCHECK 13:28 → JD.OB 13:29 → JD.OBCHECK 14:06 → JD.OB 14:06 → OBSVTOIN 19:47 → JD.OB 19:47
PROVIDERS: ADMIT Obstetrics & Gynecology; ATTEND Obstetrics & Gynecology
PROC: 10907ZC Drainage of Amniotic Fluid, Therapeutic from Products of Conception, Via Natural or Artificial Opening (ICD-10-PCS; principal; 2018-11-17)
PROC: 0HQ9XZZ Repair Perineum Skin, External Approach (ICD-10-PCS; principal; 2018-11-17)
PROC: 10E0XZZ Delivery of Products of Conception, External Approach (ICD-10-PCS; principal; 2018-11-17)
PROC: 3E0R3BZ Introduction of Anesthetic Agent into Spinal Canal, Percutaneous Approach (ICD-10-PCS; 2018-11-17)
PROC: 00HU33Z Insertion of Infusion Device into Spinal Canal, Percutaneous Approach (ICD-10-PCS; 2018-11-17)
PROC: 30233N1 Transfusion of Nonautologous Red Blood Cells into Peripheral Vein, Percutaneous Approach (ICD-10-PCS; 2018-11-18)
DX: O34.219 Maternal care for unspecified type scar from previous cesarean delivery (principal); D62 Acute posthemorrhagic anemia; Z37.0 Single live birth; O98.42 Viral hepatitis complicating childbirth; O69.81X0 Labor and delivery complicated by cord around neck, without compression, not applicable or unspecified; O70.0 First degree perineal laceration during delivery; N85.8 Other specified noninflammatory disorders of uterus; Z3A.38 38 weeks gestation of pregnancy; O99.02 Anemia complicating childbirth; Z87.891 Personal history of nicotine dependence; B19.20 Unspecified viral hepatitis C without hepatic coma; O75.89 Other specified complications of labor and delivery
CPT/HCPCS: 36415; 36430; 51701; 51702; 59025; 59409; 80306; 85025; 86592; 86850; 86900; 86901; 86922; 87653; A9270-GY; J2001; J2210; J2590; J3490; J7040; J7120; P9016

== ENCOUNTER 2020-03-01 14:27 | Inpatient (IN) | payer MEDICAID ==
[2020-03-01] MEDS ORDERED: Nalbuphine 10 MG/ML Syringe IVPUSH PRN (14:55)
[2020-03-01] MEDS ORDERED: Sodium Chloride 0.9% 10 ML Syringe FLUSH PRN (14:55)
[2020-03-01] MEDS: Lactated Ringers 1,000 ML IV SCH ×3 (17:48→19:58)
[2020-03-01] MEDS ORDERED: ePHEDrine 50 MG/ML SDV IVPUSH PRN (18:13)
[2020-03-01] MEDS ORDERED: Ondansetron 4 MG/2 ML SDV IVPUSH PRN (18:13)
[2020-03-01] MEDS ORDERED: fentaNYL 100 MCG/2 ML SDV EPIDUR PRN (18:13)
[2020-03-01] MEDS ORDERED: Phenylephrine 1 MG in Sodium Chloride 0.9% 10 ML IV SCH (18:15)
--- NOTE | 2020-03-01 18:16 | PCM.PREANE ---
Preanesthetic Assessment - Procedure Proposed Procedure: Epidural - Anesthesia/Transfusion/Family Hx Anesthesia History: Prior Anesthesia Without Reaction Family History of Anesthesia Reaction: No Transfusion History: Prior Transfusion Without Reaction Intubation History: Unknown - Review of Systems General: No Symptoms Pulmonary: No Symptoms (History of asthma) Cardiovascular: No Symptoms Gastrointestinal: No Symptoms, Abdominal Pain (5/10 for contraction) Neurological: No Symptoms Other: Reports: None, Easy Bruising, Sinus Problem (seasonal allergies) - Physical Assessment NPO Status Date: 03/01/20 NPO Status Time: 18:20 Vital Signs: Last Vital Signs Temp 36.1 C 03/01/20 14:55 Pulse 73 03/01/20 14:55 Resp 18 03/01/20 14:55 BP 125/71 03/01/20 14:55 Pulse Ox 100 03/01/20 14:55 Height: 1.6 m Weight: 77.201 kg ASA Class: 2 Mental Status: Alert & Oriented x3 Airway Class: Mallampati = 2 Dentition: Reports: Normal Dentition, Caries Thyro-Mental Finger Breadths: 3 Mouth Opening Finger Breadths: 3 ROM/Head Extension: Full Lungs: Clear to Auscultation, Normal Respiratory Effort Cardiovascular: Regular Rate, Regular Rhythm, No Murmurs - Lab Values: Laboratory Last Values WBC 10.51 K/mm3 (3.98-10.04) H 03/01/20 15:05 RBC 3.99 M/mm3 (3.98-5.22) 03/01/20 15:05 Hgb 8.9 gm/dl (11.2-15.7) L 03/01/20 15:05 Hct 30.8 % (34.1-44.9) L 03/01/20 15:05 MCV 77.2 fl (79.4-94.8) L D 03/01/20 15:05 MCH 22.3 pg (25.6-32.2) L 03/01/20 15:05 MCHC 28.9 g/dl (32.2-35.5) L 03/01/20 15:05 RDW Std Deviation 51.8 fL (36.4-46.3) H 03/01/20 15:05 Plt Count 336 K/mm3 (182-369) 03/01/20 15:05 MPV 8.1 fl (9.4-12.3) L 03/01/20 15:05 Neut % (Auto) 73.5 % (34.0-71.1) H 03/01/20 15:05 Lymph % (Auto) 17.8 % (19.3-51.7) L 03/01/20 15:05 Webb % (Auto) 6.9 % (4.7-12.5) 03/01/20 15:05 Eos % (Auto) 0.8 (0.7-5.8) 03/01/20 15:05 Baso % (Auto) 0.3 % (0.1-1.2) 03/01/20 15:05 Neut # (Auto) 7.74 K/mm3 (1.56-6.13) H 03/01/20 15:05 Lymph # (Auto) 1.87 K/mm3 (1.18-3.74) 03/01/20 15:05 Webb # (Auto) 0.72 K/mm3 (0.24-0.36) H 03/01/20 15:05 Eos # (Auto) 0.08 K/mm3 (0.04-0.36) 03/01/20 15:05 Baso # (Auto) 0.03 K/mm3 (0.01-0.08) 03/01/20 15:05 Manual Slide Review Abnormal smear 03/01/20 15:05 Urine Color Yellow (Yellow) 03/01/20 15:59 Urine Appearance Clear (Clear) 03/01/20 15:59 Urine pH 7.0 (5.0-8.0) 03/01/20 15:59 Ur Specific [place] 1.020 (1.005-1.030) 03/01/20 15:59 Urine Protein Negative (Negative) 03/01/20 15:59 Urine Glucose (UA) Negative (Negative) 03/01/20 15:59 Urine Ketones Negative (Negative) 03/01/20 15:59 Urine Occult Blood Negative (Negative) 03/01/20 15:59 Urine Nitrite Negative (Negative) 03/01/20 15:59 Urine Bilirubin Negative (Negative) 03/01/20 15:59 Urine Urobilinogen 0.2 (0.2-1.0) 03/01/20 15:59 Ur Leukocyte Esterase 2+ (Negative) H 03/01/20 15:59 Urine RBC 0-5 /hpf (0-5) 03/01/20 15:59 Urine WBC 5-10 /hpf (0-5) H 03/01/20 15:59 Ur Squamous Epith Cells 0-5 /hpf (0-5) 03/01/20 15:59 Urine Bacteria Few /hpf (FEW) 03/01/20 15:59 Urine Mucus Few /hpf (FEW) 03/01/20 15:59 Urine Trichomonas Few (NOT SEEN) H 03/01/20 15:59 Urine Opiates Screen Negative (ZZIYZU=412) 03/01/20 15:59 Ur Buprenorphine Scrn Negative (CUTOFF=10) 03/01/20 15:59 Ur Oxycodone Screen Negative (MZW2EO=263) 03/01/20 15:59 Urine Methadone Screen Negative (VVWIRP=840) 03/01/20 15:59 Ur Propoxyphene Screen Negative (HRUOKQ=015) 03/01/20 15:59 Ur Barbiturates Screen Negative (HGEKJM=108) 03/01/20 15:59 Ur Tricyclics Screen Negative (NYOFQY=395) 03/01/20 15:59 Ur Phencyclidine Scrn Negative (CUTOFF=25) 03/01/20 15:59 Ur Amphetamine Screen Negative (IWVJLW=370) 03/01/20 15:59 U Methamphetamines Scrn Negative (ZRIAQE=313) 03/01/20 15:59 U Benzodiazepines Scrn Negative (JMQOXP=049) 03/01/20 15:59 U Cocaine Metab Screen Negative (KQDCNJ=586) 03/01/20 15:59 U Marijuana (THC) Screen Negative (CUTOFF=50) 03/01/20 15:59 COVID-19 (KEMAL) Negative (NEGATIVE) 03/01/20 15:00 HIV-1 Ab Rapid Screen Negative (NEGATIVE) 03/01/20 15:05 Blood Type O POSITIVE 03/01/20 15:05 Gel Antibody Screen Negative 03/01/20 15:05 Above labs reviewed and noted and within acceptable ranges to proceed with epidural. 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: Reports: Other OB/BYN History: Prior 09/15/14, history of hemorrhage in first Musculoskeletal History: Reports: Back Pain, Chronic Hematologic History: Reports: Blood Transfusion(s) - Past Surgical History HEENT Surgical History: Reports: None Female Surgical History: Reports: Section (09/15/2014 for transverse lie of infant) - HOME MEDS Home Medications: Home Meds No122/Iron/Folic Acid [ Multi Tablet] 1 each PO DAILY 11/17/18 [History] Ferrous Sulfate 325 mg PO WITHBREAKFAST tablet 11/19/18 [Rx] - CURRENT (IN HOUSE) MEDS Current Meds: Current Medications Ephedrine Sulfate (Ephedrine Sulfate) 5 mg IVPUSH ASDIRECTED PRN PRN Reason: Hypotension Fentanyl (Sublimaze) 100 mcg EPIDUR Q3H PRN PRN Reason: Pain Fentanyl/Bupivacaine HCl (Fentanyl/Bupivacaine/Ns 2 Mcg-0.125% 100 Ml) 100 ml EPIDUR ASDIRECTED LAURE Lactated Ringer's (Ringers, Lactated) 1,000 mls @ 100 mls/hr IV ASDIRECTED LAURE Last Admin: 03/01/20 17:48 Dose: 999 mls/hr Documented by: Phenylephrine HCl 1 mg/ Sodium (Chloride) 10.1 mls @ 1 mls/sec IV TITRATE LAURE; Protocol Nalbuphine HCl (Nubain) 10 mg IVPUSH Q2H PRN PRN Reason: Pain Ondansetron HCl (Zofran) 4 mg IVPUSH ONETIME PRN PRN Reason: Nausea/Vomiting Sodium Chloride (Saline Flush) 10 ml FLUSH ASDIRECTED PRN PRN Reason: Keep Vein Open
[2020-03-01] MEDS: Bupivacaine/fentaNYL/NS 100 ML Bag EPIDUR SCH (18:28)
[2020-03-01] MEDS ORDERED: Ampicillin 2 GM in Sodium Chloride 0.9% 100 ML IV SCH (19:00)
[2020-03-01] MEDS ORDERED: Ampicillin 1 GM in Sodium Chloride 0.9% 100 ML IV SCH (19:00)
--- NOTE | 2020-03-01 19:10 | PCM.LDHP ---
L&D History of Present Illness - General Date of Service: 03/01/20 Admit Problem/Dx: Patient Status Order with Admit Dx/Problem 03/01/20 15:40 Patient Status [ADT] Routine Admission Diagnosis/Problem Admission Diagnosis/Problem and not yet delivered 03/01/20 18:34 Jamison any 4-year-old 6 para 5-0-0-5 female who is evaluated in labor and delivery for reported contractions. Contractions have been present since early on the a.m. of 03/01/2020 and have been progressively increasing throughout the day. Source of Information: Patient, Old Records History Limitations: Reports: No Limitations - History of Present Illness Introduction:: Jamison any 4-year-old 6 para 5-0-0-5 female who is evaluated in labor and delivery for reported contractions. Contractions have been present since early on the a.m. of 03/01/2020 and have been progressively increasing throughout the day. She reports contractions are about every 3 minutes and are strong enough where she has to breathe through them. She denies any vaginal bleeding or loss of vaginal fluid. She is questioning possibility of getting an epidural at this time. Is a reassuring. 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 1 with her second secondary to transverse lie. Had 1 vaginal delivery before that that weighed 8 pounds 15 ounces. She has had 3 VBACs that were successful since the . She has had no care other than one visit in [place], [place] on 02/17/2020. At that time she had some laboratory testing done but dates were not absolutely confirmed. She has not had any ultrasounds and was not seen early in the . She does not know what her JOHNNY would be. No printed records are available for her. TIAs or abnormal Pap smears. history: -Patient has with transverse lie with her second -History of macrosomia with her first at 8 pounds 15 ounces with a vaginal delivery -She reports hemorrhage with at least 3 of her pregnancies. She reports a D&C with her first and a transfusion of 2 units of blood. Her past history and physical with her in 2019 reports that she has had a total of 3 D&Cs. -Patient is hepatitis C+ per evaluation in [place]. Laboratory testing done in [place] on 02/17/2020 shows negative status for HIV, chlamydia and gonorrhea. Her blood is all positive with a negative RPR. She is rubella immune. Hepatitis C assay was positive. She had a hemoglobin 9.4, platelets of 265,000 and an ALT of 42. Her AST was 76. Iron was 30.7. Past medical history: 1. 4 vaginal deliveries3 of them VBACs after the . 2. History of blood transfusion with her first . Hemorrhaging with at least 3 of her periods 3. Hepatitis C positive status Past surgical history: 1. for transverse lie with her second 2. D&C x3 per her past printed history Medications: 1. Vitamin C daily 2. vitamins daily 3. Iron tablets daily 4. Zofran as needed for nausea 5. Sleeping pillstype unknown. Allergies: None Family history: Mother is alive and well. Father is secondary to liver cirrhosis. One brother and 2 sisters alive and well. Maternal grandmother alive and well. Paternal grandmother secondary to pneumonia. Maternal grandfather and paternal grandfather medical history is unknown. She does not think there are any bleeding, blood clotting, anesthesia or medication concerns in the family. Social history: Patient is single, lives in [place] but has lived in 3 different locations during the course of the due to COVID positive status of family and friends. She does not use any significant also alcohol, drugs or tobacco. Review of systems: In general patient has no complaints actions. Baby has been active. No loss of fluid or vaginal bleeding noted.. Skin: Negative Lungs: No infectious symptoms or shortness of breath Cardiovascular: No chest pain or exercise intolerance Breasts: No lumps, changes in size, pain, dimpling, discharge or axillary or supraclavicular concerns. GI: Negative : changes Musculoskeletal: Negative Neurological: Negative Physical exam: In general the patient is well-developed, well-nourished, pleasant female of stated age in no acute distress. Skin is warm dry without lesions. HEENT, neck and back within normal limits. Lungs are clear with good breath sounds in all lung schwartz. Cardiovascular exam shows regular and rhythm without murmurs. Abdomen is gravid with a fundal height of approximately 36-1/2 cm. Baby in vertex presentation by Paul maneuvers.. Genital exam per digital evaluation shows 2+ centimeters, 60% effaced, soft, mid position, vertex presentation, bag carter intact. Extremities and neurological exam are grossly within normal limits. Laboratory testing of significance with this admission: Hemoglobin is 8.9 with hematocrit 30.8. White count is 10.5. Platelets are 336,000. Urine analysis shows 5-10 white blood cells. Leukocyte esterase activity is 2+. Trichomonasfew noted. COVID and HIV testing are negative. Drug screen is negative. Focused bedside abdominal ultrasound shows a schaefer, viable, intrauterine with baby in vertex presentation with back to the patient's right side. Amniotic fluid is adequate with a single deepest pocket approximately 3- 1/2 cm. Biometrics include the following: BPD: 8.64 cm consistent with 34-6/7 weeks gestational age Head circumference 32.1 cm consistent with 36-2/7 weeks gestational age Abdominal circumference: 33.9 cm consistent with 37-6/7 weeks gestational age Femur length 6.96 cm consistent with 35-5/7 weeks gestational age. Impression: Schaefer, viable, intrauterine with vertex presentation. Composite biometrics evaluation consistent with 36-1/7 weeks gestational age. 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: Reports: Other OB/BYN History: Prior 09/15/14, history of hemorrhage in first Musculoskeletal History: Reports: Back Pain, Chronic Hematologic History: Reports: Blood Transfusion(s) - Past Surgical History HEENT Surgical History: Reports: None Female Surgical History: Reports: Section (09/15/2014 for transverse lie of ) Social & Family History - Family History Family Medical History: Noncontributory - Caffeine Use Caffeine Use: Reports: Soda - Sexual History Sexual History: Reports: Sexually Active H&P Review of Systems - Review of Systems: Review Of Systems: See Below L&D Exam - Exam Exam: See Below - Vital Signs Vital Signs: Last Vital Signs Temp 36.1 C 03/01/20 14:55 Pulse 73 03/01/20 14:55 Resp 18 03/01/20 14:55 BP 125/71 03/01/20 14:55 Pulse Ox 100 03/01/20 14:55 Weight: 77.201 kg - Patient Data Lab Results Last 24 hrs: Laboratory Results - last 24 hr 03/01/20 03/01/20 03/01/20 Range/Units 15:00 15:05 15:05 WBC 10.51 H (3.98-10.04) K/mm3 RBC 3.99 (3.98-5.22) M/mm3 Hgb 8.9 L (11.2-15.7) gm/dl Hct 30.8 L (34.1-44.9) % MCV 77.2 L D (79.4-94.8) fl MCH 22.3 L (25.6-32.2) pg MCHC 28.9 L (32.2-35.5) g/dl RDW Std Deviation 51.8 H (36.4-46.3) fL Plt Count 336 (182-369) K/mm3 MPV 8.1 L (9.4-12.3) fl Neut % (Auto) 73.5 H (34.0-71.1) % Lymph % (Auto) 17.8 L (19.3-51.7) % [place] % (Auto) 6.9 (4.7-12.5) % Eos % (Auto) 0.8 (0.7-5.8) Baso % (Auto) 0.3 (0.1-1.2) % Neut # (Auto) 7.74 H (1.56-6.13) K/mm3 Lymph # (Auto) 1.87 (1.18-3.74) K/mm3 [place] # (Auto) 0.72 H (0.24-0.36) K/mm3 Eos # (Auto) 0.08 (0.04-0.36) K/mm3 Baso # (Auto) 0.03 (0.01-0.08) K/mm3 Manual Slide Review Abnormal smear Urine Color (Yellow) Urine Appearance (Clear) Urine pH (5.0-8.0) Ur Specific Miles (1.005-1.030) Urine Protein (Negative) Urine Glucose (UA) (Negative) Urine Ketones (Negative) Urine Occult Blood (Negative) Urine Nitrite (Negative) Urine Bilirubin (Negative) Urine Urobilinogen (0.2-1.0) Ur Leukocyte Esterase (Negative) Urine RBC (0-5) /hpf Urine WBC (0-5) /hpf Ur Squamous Epith Cells (0-5) /hpf Urine Bacteria (FEW) /hpf Urine Mucus (FEW) /hpf Urine Trichomonas (NOT SEEN) Urine Opiates Screen (MTLWBH=586) Ur Buprenorphine Scrn (CUTOFF=10) Ur Oxycodone Screen (CFY8LF=946) Urine Methadone Screen (PKAMGR=925) Ur Propoxyphene Screen (MZTHRI=279) Ur Barbiturates Screen (SWCEYM=342) Ur Tricyclics Screen (VCTUBX=096) Ur Phencyclidine Scrn (CUTOFF=25) Ur Amphetamine Screen (XOAVJM=837) U Methamphetamines Scrn (HLCKLV=067) U Benzodiazepines Scrn (NFBNBP=406) U Cocaine Metab Screen (OUYROM=599) U Marijuana (THC) Screen (CUTOFF=50) COVID-19 (KEMAL) Negative (NEGATIVE) HIV-1 Ab Rapid Screen Negative (NEGATIVE) Blood Type Gel Antibody Screen 03/01/20 03/01/20 03/01/20 Range/Units 15:05 15:59 15:59 WBC (3.98-10.04) K/mm3 RBC (3.98-5.22) M/mm3 Hgb (11.2-15.7) gm/dl Hct (34.1-44.9) % MCV (79.4-94.8) fl MCH (25.6-32.2) pg MCHC (32.2-35.5) g/dl RDW Std Deviation (36.4-46.3) fL Plt Count (182-369) K/mm3 MPV (9.4-12.3) fl Neut % (Auto) (34.0-71.1) % Lymph % (Auto) (19.3-51.7) % [place] % (Auto) (4.7-12.5) % Eos % (Auto) (0.7-5.8) Baso % (Auto) (0.1-1.2) % Neut # (Auto) (1.56-6.13) K/mm3 Lymph # (Auto) (1.18-3.74) K/mm3 [place] # (Auto) (0.24-0.36) K/mm3 Eos # (Auto) (0.04-0.36) K/mm3 Baso # (Auto) (0.01-0.08) K/mm3 Manual Slide Review Urine Color Yellow (Yellow) Urine Appearance Clear (Clear) Urine pH 7.0 (5.0-8.0) Ur Specific Miles 1.020 (1.005-1.030) Urine Protein Negative (Negative) Urine Glucose (UA) Negative (Negative) Urine Ketones Negative (Negative) Urine Occult Blood Negative (Negative) Urine Nitrite Negative (Negative) Urine Bilirubin Negative (Negative) Urine Urobilinogen 0.2 (0.2-1.0) Ur Leukocyte Esterase 2+ H (Negative) Urine RBC 0-5 (0-5) /hpf Urine WBC 5-10 H (0-5) /hpf Ur Squamous Epith Cells 0-5 (0-5) /hpf Urine Bacteria Few (FEW) /hpf Urine Mucus Few (FEW) /hpf Urine Trichomonas Few H (NOT SEEN) Urine Opiates Screen Negative (RYVWYG=205) Ur Buprenorphine Scrn Negative (CUTOFF=10) Ur Oxycodone Screen Negative (ZJQ4DQ=139) Urine Methadone Screen Negative (QWNRWR=252) Ur Propoxyphene Screen Negative (TFDMBT=679) Ur Barbiturates Screen Negative (NYPHVY=880) Ur Tricyclics Screen Negative (QRNGNS=238) Ur Phencyclidine Scrn Negative (CUTOFF=25) Ur Amphetamine Screen Negative (PLHXFD=215) U Methamphetamines Scrn Negative (PHZHUP=871) U Benzodiazepines Scrn Negative (GTZYYB=131) U Cocaine Metab Screen Negative (CWMECJ=228) U Marijuana (THC) Screen Negative (CUTOFF=50) COVID-19 (KEMAL) (NEGATIVE) HIV-1 Ab Rapid Screen (NEGATIVE) Blood Type O POSITIVE Gel Antibody Screen Negative Result Diagrams: 03/01/20 15:05 Problem List Initiated/Reviewed/Updated: Yes Orders Last 24hrs: Active Orders 24 hr Category Date Time Status Patient Status [ADT] Routine ADT 03/01/20 15:40 Active Activity as Tolerated [RC] PFP Care 03/01/20 14:55 Active Communication Order [RC] ASDIRECTED Care 03/01/20 14:55 Active Heart Tones [RC] ASDIRECTED Care 03/01/20 14:55 Active Non Stress Test [RC] PER UNIT ROUTINE Care 03/01/20 14:55 Active Notify Provider [RC] ASDIRECTED Care 03/01/20 18:13 Active Notify Provider [RC] PFP Care 03/01/20 14:55 Active Notify Provider [RC] PRN Care 03/01/20 14:55 Active Oxygen Therapy [RC] ASDIRECTED Care 03/01/20 18:13 Active Peripheral IV Care [RC] . DIRECTED Care 03/01/20 14:55 Active Pulse Oximetry [RC] ASDIRECTED Care 03/01/20 18:13 Active Vital Signs [RC] PER UNIT ROUTINE Care 03/01/20 14:55 Active Regular Diet [DIET] Diet 03/01/20 Dinner Active GROUP B STREP BY PCR [MOLEC] Routine Lab 03/01/20 15:25 Received HEPATITIS B SURFACE AG [CHEM] Stat Lab 03/01/20 15:05 Received RAPID PLASMA REAGIN,RPR [CHEM] Routine Lab 03/01/20 15:05 Received RUBELLA ANTIBODY IGG [CHEM] Stat Lab 03/01/20 15:05 Received TYPE AND SCREEN [BBK] Stat Lab 03/01/20 15:05 Results Bupivacaine/fentaNYL/NS [fentaNYL/Bupivacaine/NS 2 MCG- Med 03/01/20 18:15 Active 0.125% 100 ML] 100 ml EPIDUR ASDIRECTED Lactated Ringers [Ringers, Lactated] 1,000 ml Med 03/01/20 15:00 Active IV ASDIRECTED Nalbuphine [Nubain] Med 03/01/20 14:55 Active 10 mg IVPUSH Q2H PRN Ondansetron [Zofran] Med 03/01/20 18:13 Active 4 mg IVPUSH ONETIME PRN Phenylephrine [Demetris-Synephrine] 1 mg Med 03/01/20 18:15 Active Sodium Chloride 0.9% [Normal Saline] 10 ml IV TITRATE Sodium Chloride 0.9% [Saline Flush] Med 03/01/20 14:55 Active 10 ml FLUSH ASDIRECTED PRN ePHEDrine [ePHEDrine sulfate] Med 03/01/20 18:13 Active 5 mg IVPUSH ASDIRECTED PRN fentaNYL [Sublimaze] Med 03/01/20 18:13 Active 100 mcg EPIDUR Q3H PRN Electronic Heart Tones Ext w TOCO [WOMSER] Oth 03/01/20 14:55 Ordered Routine Electronic Heart Tones Internal [WOMSER] Per Unit Oth 03/01/20 14:55 Ordered Routine Peripheral IV Insertion Adult [OM.PC] Routine Oth 03/01/20 14:55 Ordered Resuscitation Status Routine Resus Stat 03/01/20 14:55 Ordered Medication Orders Ephedrine Sulfate (Ephedrine Sulfate) 5 mg IVPUSH ASDIRECTED PRN PRN Reason: Hypotension Fentanyl (Sublimaze) 100 mcg EPIDUR Q3H PRN PRN Reason: Pain Last Admin: 03/01/20 18:27 Dose: 100 mcg Documented by: MARLENE Fentanyl/Bupivacaine HCl (Fentanyl/Bupivacaine/Ns 2 Mcg-0.125% 100 Ml) 100 ml EPIDUR ASDIRECTED [facility] Last Admin: 03/01/20 18:28 Dose: 100 ml Documented by: MARLENE Lactated Ringer's (Ringers, Lactated) 1,000 mls @ 100 mls/hr IV ASDIRECTED [facility] Last Admin: 03/01/20 18:28 Dose: 999 mls/hr Documented by: Infusion: 03/01/20 18:28 Dose: 999 mls/hr Documented by: Admin: 03/01/20 17:48 Dose: 999 mls/hr Documented by: IQRA Phenylephrine HCl 1 mg/ Sodium (Chloride) 10.1 mls @ 1 mls/sec IV TITRATE [facility]; Protocol Nalbuphine HCl (Nubain) 10 mg IVPUSH Q2H PRN PRN Reason: Pain Ondansetron HCl (Zofran) 4 mg IVPUSH ONETIME PRN PRN Reason: Nausea/Vomiting Sodium Chloride (Saline Flush) 10 ml FLUSH ASDIRECTED PRN PRN Reason: Keep Vein Open Assessment/Plan Comment:: 1. Near term intrauterine with dating by ultrasound today placing her composite gestational age of 36-1/7 weeks. Active labor with slight progr ession in cervical dilation and contractions every 3 minutes 2. History of previous section with second due to transverse liepatient has successfully x3 since that . She desires to at this time. The procedure and process of , its risks, benefits and pre cautions to be taken if attempt is to be performed all discussed in detail with patient. She appears understand, wishes to proceed. 3. Group B strep status unknownpatient candidate for ampicillin prophylaxis per protocol 4. Laboratory testing shows significant anemia with hemoglobin presently at 8.9. 5. Patient is rubella immune. 6. Patient is COVID negative and HIV negative. 7. Drug screen is negative. 8. Hepatitis C status positive. 9. History of macrosomic (8 pounds 15 ounces) infant with first . 10. Essentially no care with this . 11. History of hemorrhagesomewhat confusing but did require transfusion of 2 units of packed red blood cells with first by patient history patient also reports 1 D&C for hemorrhage. Previous history reports 3 D&Cs after delivery. Plan: 1. Admit for active labor 2. Epidural if patient desires 3. Appropriate precautions as it regards her hepatitis C status 4. Patient undecided about nursing but leaning towards bottlefeeding 5. Aggressive uterotonic's after delivery to decrease likelihood of uterine bleeding. 6. She is regarding history of with desire for to include: C- section labs, consent for trial of labor in an attempt to do a and for repeat , near continuous monitoring of heart tones, inform anesthesia and surgery that trial of labor candidate is in labor and delivery. 7. Anticipate normal spontaneous vaginal delivery after section 8. Group B strep prophylaxis per protocol as patient is group B strep status is on known.
[2020-03-01] MEDS ORDERED: Ampicillin 2 GM AdvVial IV ONE (20:03)
[2020-03-01] MEDS ORDERED: metroNIDAZOLE/Normal Saline 500 MG in Premix Bag 1 BAG IV ONE (21:01)
[2020-03-02] MEDS ORDERED: Bupivacaine 0.25% 10 ML SDV ONE
[2020-03-02] MEDS: Ampicillin 1 GM in Sodium Chloride 0.9% 100 ML IV SCH ×2 (00:13→03:48)
[2020-03-02] MEDS ORDERED: Oxytocin/Lactated Ringers 10 UNIT/1,000 ML BAG IV SCH (01:15)
[2020-03-02] MEDS: Bupivacaine/fentaNYL/NS 100 ML Bag EPIDUR SCH (02:43)
--- NOTE | 2020-03-02 03:44 | PCM.SN.2 ---
- Free Text/Narrative Note: Progress note: At 0340 hrs. on 03/02/2020 patient is maryann every 3 minutes. Cervix has gone to 4+ centimeters with 100% effacement, -2 station, with presenting part well applied to the cervix. heart tones are very reassuring. Patient is on Pitocin augmentation. AROM is undertaken with resultant very mild meconium- stained amniotic fluid. Assessment: Active labor with reasonable progress. Plan: Anticipate . Monitor contractions closely. Monitor for separation uterine scar closely. Continuous monitoring.
[2020-03-02] MEDS: Lactated Ringers 1,000 ML IV SCH (03:50)
[2020-03-02] MEDS ORDERED: Methylergonovine 0.2 MG/1 ML Amp ONE (05:51)
--- NOTE | 2020-03-02 06:11 | PCM.SN.2 ---
- Free Text/Narrative Note: Delivery note: Jamison is a 24-year-old 6 para 5-0-0-5 female who is evaluated in labor and delivery for reported contractions. Contractions have been present since early on the a.m. of 03/01/2020 and have been progressively increasing throughout that day. Patient made slow but steady progress until approximately 4 cm at which time she underwent artificial rupture membranes with resultant bloody meconium-stained amniotic fluid. heart tones remained reassuring throughout labor until the very end when some variable decelerations were noted. Variability remained adequate throughout the labor. She underwent labor epidural for analgesia. She had good results with this. At 0532 hrs. on 03/02/2020 patient delivered a viable, burger, male infant with Apgars of 8 and 9, a weight of 3040 g (6 pounds 11.2 ounces) and a length of 20.0 inches in a direct occiput anterior position over an intact perineum. The baby is placed on mom's abdomen. Pitocin was increased to 500 cc an hour to facilitate increase in uterine tone and decrease likelihood of bleeding. Umbilical cord was allowed to pulsate x3 minutes and then was clamped x2 and cut by the patient herself. There were 3 vessels in the umbilical cord. The placenta delivered fractionally 18 minutes after the baby delivered at 0550 hrs. It delivered in a Nguyen presentation, appeared intact and complete, was mildly meconium-stained. It was discarded per patient desire. Patient did receive Methergine 0.2 mg IM to further facilitate an increase in uterine tone she is having some bleeding and has a had a history of hemorrhage in at least 3 of her past deliveries. Blood loss was 200 cc. Patient plans to breast-feed. Condition: Good
[2020-03-02] MEDS ORDERED: Witch Hazel Medicated Pads 40/Jar TOP PRN (07:02)
[2020-03-02] MEDS ORDERED: Acetaminophen 325 MG Tab PO PRN (07:02)
[2020-03-02] MEDS ORDERED: Docusate Sodium 100 MG Cap PO PRN (07:02)
[2020-03-02] MEDS ORDERED: Benzocaine/Menthol 20%-0.5% Spray 56 GM Canister TOP PRN (07:02)
--- NOTE | 2020-03-02 08:45 | PCM48HPAN ---
Post Anesthesia Note - EVALUATION WITHIN 48HRS OF ANESTHETIC Vital Signs in Normal Range: Yes Patient Participated in Evaluation: Yes Respiratory Function Stable: Yes Airway Patent: Yes Cardiovascular Function Stable: Yes Hydration Status Stable: Yes Pain Control Satisfactory: Yes Nausea and Vomiting Control Satisfactory: Yes Mental Status Recovered: Yes Vital Signs: Last Vital Signs Temp 36.1 C 03/01/20 14:55 Pulse 73 03/01/20 14:55 Resp 18 03/01/20 14:55 BP 125/71 03/01/20 14:55 Pulse Ox 100 03/01/20 14:55
[2020-03-02] MEDS: Ibuprofen 600 MG Tab PO PRN ×3 (11:41→22:16)
[2020-03-02] MEDS: Prenatal Multivitamin with Calcium/Folic Acid/Iron Tab PO SCH (11:42)
--- NOTE | 2020-03-03 07:25 | PCM.DCSUM1 ---
Discharge Summary - Hospital Course Free Text/Narrative:: Jamison is a 24-year-old 6 para 5-0-0-5 female who is evaluated in labor and delivery for reported contractions. Contractions have been present since early on the a.m. of 03/01/2020 and have been progressively increasing throughout that day. Patient made slow but steady progress until approximately 4 cm at which time she underwent artificial rupture membranes with resultant bloody meconium-stained amniotic fluid. heart tones remained reassuring throughout labor until the very end when some variable decelerations were noted. Variability remained adequate throughout the labor. She underwent labor epidural for analgesia. She had good results with this. At 0532 hrs. on 03/02/2020 patient delivered a viable, burger, male with Apgars of 8 and 9, a weight of 3040 g (6 pounds 11.2 ounces) and a length of 20.0 inches in a direct occiput anterior position over an intact perineum. The baby is placed on mom's abdomen. Pitocin was increased to 500 cc an hour to facilitate increase in uterine tone and decrease likelihood of bleeding. Umbilical cord was allowed to pulsate x3 minutes and then was clamped x2 and cut by the patient herself. There were 3 vessels in the umbilical cord. The placenta delivered fractionally 18 minutes after the baby delivered at 0550 hrs. It delivered in a Nguyen presentation, appeared intact and complete, was mildly meconium-stained. It was discarded per patient desire. Patient did receive Methergine 0.2 mg IM to further facilitate an increase in uterine tone she is having some bleeding and has a had a history of hemorrhage in at least 3 of her past deliveries. Blood loss was 200 cc. Patient plans to breast-feed. Condition: Good Plan patient is doing well. She has minimal lochia, is ambulating well, voiding without problems. She is nursing with good results. She is desiring discharge home. Diagnosis: Stroke: No - Discharge Data Discharge Date: 03/03/20 Discharge Disposition: Home, Self-Care 01 Condition: Good - Referral to Home Health Primary Care Physician: PCP None - Patient Summary/Data Consults: Consultations 03/02/20 08:26 Consult to Case Management/Wildlife Manager [CONS] Routine - Patient Instructions Diet: Regular Diet as Tolerated (Diet with increased calories and calcium as recommended) Activity: As Tolerated (No intercourse or tampons until bleeding resolves) Driving: Do Not Drive Showering/Bathing: May Shower Showering/Bathing, Other: May take a bath - Discharge Plan Home Medications: Home Meds No122/Iron/Folic Acid [ Multi Tablet] 1 each PO DAILY 11/17/18 [History] Ferrous Sulfate 325 mg PO WITHBREAKFAST tablet 11/19/18 [Rx] Acetaminophen [Tylenol] 650 mg PO Q4H PRN tablet 03/03/20 [Rx] Ibuprofen [Motrin] 600 mg PO Q4H PRN tablet 03/03/20 [Rx] Referrals: Joce Albaardo MD [Physician] - (Return [facility] weeks.) - Discharge Summary/Plan Comment DC Time >30 min.: No Discharge Summary/Plan Comment: Discharge instructions: 1. Discharge home 2. Diet, activity and follow-up discussed with patient. Recommend nursing diet with increased calories and calcium. 3. Precautions given concern increased pain, bleeding, temperature, signs/symptoms of DVT/PE. 4. Medications per home medication was printed, discussed with and given to the patient. 5. Return to clinic-Dr. Albarado[facility] in 2 weeks. Diagnosis: Term -delivered Condition: Good - Patient Data Vitals - Most Recent: Last Vital Signs Temp 36.1 C 03/03/20 03:06 Pulse 70 03/03/20 03:06 Resp 15 03/03/20 03:06 BP 123/61 03/03/20 03:06 Pulse Ox 100 03/03/20 03:06 Weight - Most Recent: 77.201 kg I&O - Last 24 hours: Intake & Output 03/02/20 03/03/20 03/03/20 22:59 06:59 14:59 Intake Total 120 Balance 120 Lab Results - Last 24 hrs: Laboratory Results - last 24 hr 03/01/20 03/01/20 03/01/20 Range/Units 15:05 15:05 15:25 Hep Bs Antigen Nonreactive (NONREACTIVE) Rubella IgG Antibody Reactive (pos) (REACTIVE) Group B Strep (PCR) Negative (NEGATIVE) Med Orders - Current: Current Medications Acetaminophen (Tylenol) 650 mg PO Q4H PRN PRN Reason: mild pain or fever Benzocaine/Menthol (Dermoplast Pain Relief [place]) 0 gm TOP ASDIRECTED PRN PRN Reason: Perineal Comfort Measure Last Admin: 03/02/20 11:40 Dose: 1 can Documented by: Docusate Sodium (Colace) 100 mg PO BID PRN PRN Reason: Constipation Ibuprofen (Motrin) 600 mg PO Q4H PRN PRN Reason: Mild pain or fever Last Admin: 03/02/20 22:16 Dose: 600 mg Documented by: Prenat Multivit/Bosque/Iron/Folic Ac ( Plus Iron) 1 each PO DAILY ON LICENSE OF [facility] Last Admin: 03/02/20 11:42 Dose: 1 each Documented by: Kelly Gibbs ([facility]) 1 pad TOP ASDIRECTED PRN PRN Reason: Perineal Comfort Measure Last Admin: 03/02/20 11:40 Dose: 1 jar Documented by: Discontinued Medications Ampicillin Sodium (Ampicillin) Confirm Administered Dose 2 gm IV .STK-MED ONE Stop: 03/01/20 20:04 Last Admin: 03/01/20 20:19 Dose: Not Given Documented by: Bupivacaine HCl (Sensorcaine-Mpf 0.25%) 10 ml .ROUTE .STK-MED ONE Stop: 03/02/20 00:01 Ephedrine Sulfate (Ephedrine Sulfate) 5 mg IVPUSH ASDIRECTED PRN PRN Reason: Hypotension Fentanyl (Sublimaze) 100 mcg EPIDUR Q3H PRN PRN Reason: Pain Last Admin: 03/01/20 18:27 Dose: 100 mcg Documented by: Fentanyl/Bupivacaine HCl (Fentanyl/Bupivacaine/Ns 2 Mcg-0.125% 100 Ml) 100 ml EPIDUR ASDIRECTED ON LICENSE OF [facility] Last Admin: 03/02/20 02:43 Dose: 100 ml Documented by: Lactated Ringer's (Ringers, Lactated) 1,000 mls @ 100 mls/hr IV ASDIRECTED ON LICENSE OF [facility] Last Admin: 03/02/20 03:50 Dose: 999 mls/hr Documented by: Phenylephrine HCl 1 mg/ Sodium (Chloride) 10.1 mls @ 1 mls/sec IV TITRATE ON LICENSE OF [facility]; Protocol Ampicillin Sodium 2 gm/ Sodium (Chloride) 100 mls @ 200 mls/hr IV NOW ON LICENSE OF [facility] Last Admin: 03/01/20 20:11 Dose: 200 mls/hr Documented by: Ampicillin Sodium 1 gm/ Sodium (Chloride) 100 mls @ 200 mls/hr IV Q4H LAURE Ampicillin Sodium 1 gm/ Sodium (Chloride) 100 mls @ 200 mls/hr IV Q4H LAURE Last Admin: 03/02/20 03:48 Dose: 200 mls/hr Documented by: Metronidazole 500 mg/ Premix 100 mls @ 100 mls/hr IV ONETIME ONE Stop: 03/01/20 22:00 Last Admin: 03/01/20 21:30 Dose: 100 mls/hr Documented by: Oxytocin/Lactated Ringer's (Pitocin In Lr 10 Units/1,000 Ml) 10 unit in 1,000 mls @ 12 mls/hr IV TITRATE LAURE; Protocol Last Titration: 03/02/20 06:18 Dose: 83.33 munits/min, 500 mls/hr Documented by: Methylergonovine Maleate (Methergine) Confirm Administered Dose 0.2 mg .ROUTE .STK-MED ONE Stop: 03/02/20 05:52 Last Admin: 03/02/20 05:54 Dose: 0.2 mg Documented by: Nalbuphine HCl (Nubain) 10 mg IVPUSH Q2H PRN PRN Reason: Pain Ondansetron HCl (Zofran) 4 mg IVPUSH ONETIME PRN PRN Reason: Nausea/Vomiting Sodium Chloride (Saline Flush) 10 ml FLUSH ASDIRECTED PRN PRN Reason: Keep Vein Open
[2020-03-03] MEDS: Prenatal Multivitamin with Calcium/Folic Acid/Iron Tab PO SCH (08:54)
[2020-03-03] MEDS: Ibuprofen 600 MG Tab PO PRN (08:57)
== END 2020-03-03 18:25 | disposition home or self-care (01) | DRG 807 ==
LOC: JD.OBCHECK 14:27 → JD.OB 14:28 → JD.OBCHECK 20:15 → JD.OB 20:57 → OBSVTOIN 03-02 05:50 → JD.OB 03-02 05:53
PROVIDERS: ADMIT Obstetrics & Gynecology; ATTEND Obstetrics & Gynecology
PROC: 10E0XZZ Delivery of Products of Conception, External Approach (ICD-10-PCS; principal; 2020-03-02)
PROC: 10907ZC Drainage of Amniotic Fluid, Therapeutic from Products of Conception, Via Natural or Artificial Opening (ICD-10-PCS; 2020-03-02)
PROC: 3E0R3BZ Introduction of Anesthetic Agent into Spinal Canal, Percutaneous Approach (ICD-10-PCS; 2020-03-02)
PROC: 00HU33Z Insertion of Infusion Device into Spinal Canal, Percutaneous Approach (ICD-10-PCS; 2020-03-02)
DX: O99.02 Anemia complicating childbirth (principal); Z37.0 Single live birth; D64.9 Anemia, unspecified; O99.52 Diseases of the respiratory system complicating childbirth; J45.909 Unspecified asthma, uncomplicated; Z20.828 Contact with and (suspected) exposure to other viral communicable diseases; O77.0 Labor and delivery complicated by meconium in amniotic fluid; Z3A.36 36 weeks gestation of pregnancy; O76 Abnormality in fetal heart rate and rhythm complicating labor and delivery
CPT/HCPCS: 01967; 36415; 51702; 59025; 59409; 80306; 81001; 85025; 86592; 86762; 86850; 86900; 86901; 87086; 87088; 87181; 87184; 87340; 87653; A9270-GY; G0433; J0290; J2210; J2590; J3010; J3490; J7050; J7120; U0002